=== PATIENT | male | born 1945 | race Caucasian/White ===

== ENCOUNTER 2020-03-07 14:14 | Observation (INO) | payer MEDICARE, OTHER ==
[~2020-03-07] VITALS: Ht 172.7 cm; Wt 108.0 kg
[~2020-03-07 14:14] MED LIST: ATENOLOL50 MG PO; BUMETANIDE2 MG PO; CARDIZEM CD300 MG PO; CITALOPRAM HBR20 MG PO; ECEE PLUS TABL1 EACH PO; EFFIENT10 MG PO; GLIPIZIDE10 MG PO; JANUMET 50-1,01 EACH PO; LEVAQUIN500 MG PO; LISINOPRIL-HCT1 EACH PO; LOVASTATIN20 MG PO; METOCLOPRAMIDE10 MG PO; MULTI-DAY VITA1 EACH PO; OMEGA 3 FISH O1 EACH PO; OMEPRAZOLE20 M1 PO; OXYBUTYNIN CHLOR5 MG PO; VANCOMYCIN HCL1 GM IV; VASOFLEX FORTE1 EACH PO
[2020-03-07] MEDS ORDERED: SODIUM CHLORIDE 0.9% 1000ML 1,000 ML IV STA (14:43)
[2020-03-07] MEDS ORDERED: ASPIRIN 81 MG CHEW TAB PO ONE (14:45)
--- NOTE | 2020-03-07 14:49 | Emergency Department Note ---
History of Present Illnes History of Present Illness Chief Complaint: Abdominal Complaints History of Present Illness This is a 74 year old male .c/o abd pain / chest pain on set this am here for diffuse abdominal and epigastric pain that started around 1115 this morning and has now subsided. client states that the pain made him want to vomit. Historian: Patient Arrival Mode: Car Onset (how long ago): day(s) (today) Radiation: abdomen Severity: moderate Onset quality: sudden Duration (how long): day(s) (onset today ) Timing of current episode: constant Progression: unchanged Context: recent illness, recent surgery, recent immobilization, recent travel, trauma/injury, new medications, hx of DVT/PE, non-compliance w/ medications, other Relieving factors: none Exacerbating factors: none Treatments prior to arrival: none (CARSON TOLEDO NP) Past Medical/Family History Physician Review I have reviewed the patient's past medical and family history. Any updates have been documented here. (CARSON TOLEDO NP) Past Medical History Recent Fever: No Clinical Suspicion of Infectio: No New/Unexplained Change in Ment: No Past Medical History: Hypertension, Diabetes, GERD Other Medical History: parkinsons Past Surgical History: Cholecysctectomy Other Surgery: FOOT SURGERY (CARSON TOLEDO NP) Social History Smoking Cessation: Never Smoker Alcohol Use: None Any Illegal Drug Use: No TB Exposure/Symptoms: No (CARSON TOLEDO NP) Family History Family history of heart diseas: No (CARSON TOLEDO NP) Other Last Tetanus: UNK Any Pre-Existing Lines (PICC,: No (CARSON TOLEDO NP) Review of Systems Review of Systems Constitutional: no symptoms EENTM: no symptoms Cardiovascular: no symptoms, chest pain Respiratory: no symptoms Gastrointestinal: abdominal pain, nausea Genitourinary: no symptoms Musculoskeletal: no symptoms Neurological: no symptoms Psychological: no symptoms Endocrine: no symptoms Hematological/Lymphatic: no symptoms Review of other systems All other systems reviewed and negative. (CARSON TOLEDO NP) Physical Exam Related Data Allergies: Coded Allergies: No Known Allergies (Unverified , 11/23/12) Triage Vital Signs Vital Signs Date Time Temp Pulse Resp B/P (MAP) Pulse Ox O2 Delivery O2 Flow Rate FiO2 03/07/20 14:31 97.8 66 16 122/70 97 Vital signs reviewed: Yes (SHORT,CARSON D NICU RN) Physical Exam CONSTITUTIONAL Constitutional: well-developed, well-nourished HENT HENT: normocephalic, atraumatic, oropharynx clear/moist, nose normal HENT L/R: left ext ear normal, right ext ear normal EYES Eyes: PERRL, conjunctivae normal NECK Neck: ROM normal PULMONARY Pulmonary: effort normal, breath sounds normal CARDIOVASCULAR Cardiovascular: regular rhythm, heart sounds normal, capillary refill normal, normal rate GASTROINTESTINAL Abdominal: soft, nontender, bowel sounds normal GENITOURINARY Genitourinary: exam deferred SKIN Skin: warm, dry MUSCULOSKELETAL Musculoskeletal: ROM normal NEUROLOGICAL Neurological: alert, oriented x 3, no gross motor or sensory deficits PSYCHOLOGICAL Psychological: mood/affect normal, judgement normal (CARSON TOLEDO NP) Results Laboratory Laboratory Laboratory Tests Test 03/07/20 14:40 White Blood Count 8.17 x10e3/uL (4.8-10.8) Red Blood Count 3.99 x10e6/uL (4.3-5.7) Hemoglobin 12.1 g/dL (14.0-18.0) Hematocrit 37.6 % (38.2-49.6) Mean Corpuscular Volume 94.2 fL (81-99) Mean Corpuscular Hemoglobin 30.3 pg (28-32) Mean Corpuscular Hemoglobin Concent 32.2 g/dL (31-35) Red Cell Distribution Width 13.2 % (11.7-14.4) Platelet Count 180 x10e3/uL (140-360) Neutrophils (%) (Auto) 76.0 % (38.7-80.0) Lymphocytes (%) (Auto) 14.3 % (18.0-39.1) Monocytes (%) (Auto) 6.4 % (4.4-11.3) Eosinophils (%) (Auto) 2.0 % (0.0-6.0) Basophils (%) (Auto) 0.6 % (0.0-1.0) Neutrophils # (Auto) 6.2 (2.1-6.9) Lymphocytes # (Auto) 1.2 (1.0-3.2) Monocytes # (Auto) 0.5 (0.2-0.8) Eosinophils # (Auto) 0.2 (0.0-0.4) Basophils # (Auto) 0.1 (0.0-0.1) Absolute Immature Granulocyte (auto 0.06 x10e3/uL (0-0.1) Prothrombin Time 11.9 seconds (11.9-14.5) Prothromb Time International Ratio 0.83 Activated Partial Thromboplast Time 26.8 seconds (23.8-35.5) Sodium Level 138 mmol/L (136-145) Potassium Level 5.1 mmol/L (3.5-5.1) Chloride Level 105 mmol/L (98-107) Carbon Dioxide Level 21 mmol/L (22-29) Anion Gap 17.1 mmol/L (8-16) Blood Urea Nitrogen 31 mg/dL (7-26) Creatinine 1.71 mg/dL (0.72-1.25) Estimat Glomerular Filtration Rate 39 ML/MIN (60-) BUN/Creatinine Ratio 18 (6-25) Glucose Level 340 mg/dL (74-118) Calcium Level 8.7 mg/dL (8.4-10.2) Total Bilirubin 0.3 mg/dL (0.2-1.2) Aspartate Amino Transf (AST/SGOT) 35 IU/L (5-34) Alanine Aminotransferase (ALT/SGPT) 14 IU/L (0-55) Alkaline Phosphatase 108 IU/L (40-150) Creatine Kinase 78 IU/L (30-200) Creatine Kinase MB 3.30 ng/mL (0-5.0) Troponin I < 0.001 ng/mL (0-0.300) Total Protein 6.5 g/dL (6.5-8.1) Albumin 3.6 g/dL (3.5-5.0) Globulin 2.9 g/dL (2.3-3.5) Albumin/Globulin Ratio 1.2 (0.8-2.0) Amylase Level 37 U/L (25-125) Lipase 44 U/L (8-78) Lab results reviewed: Yes (CARSON TOLEDO NP) Imaging Impressions Procedure: [id number] DX/CHEST SINGLE (PORTABLE) Exam Date: 03/07/20 Exam Time: 1520 REPORT STATUS: Signed TECHNIQUE: Frontal view of the chest. INDICATION: 74-year-old man with chest pain. COMPARISON: Chest radiograph 11/23/2012. FINDINGS: LINES/TUBES: None. LUNGS: The lungs are well inflated. No consolidation or pulmonary edema. PLEURA: No pneumothorax or significant pleural effusion. HEART AND MEDIASTINUM: The cardiomediastinal silhouette is within normal limits. SOFT TISSUES AND BONES: Bones are unremarkable. Unchanged clips in the left axillary region. IMPRESSION: No acute cardiopulmonary abnormalities. Signed by: Domingo Valle MD on 03/07/2020 3:58 PM Dictated By: DOMINGO VALLE MD 57 Transcribed By: NIRAJ on 03/07/201557 Procedure: [id number] CT/CT ABDOMEN/PELVIS WO Exam Date: Exam Time: REPORT STATUS: Signed EXAMINATION: CT of the abdomen and pelvis without contrast. TECHNIQUE: Spiral CT images of the abdomen and pelvis were performed from the lung bases to the lesser trochanters. No intravenous contrast was given due to decreased GFR. Coronal and sagittal reformatted images were obtained. COMPARISON: None. CLINICAL HISTORY:Epigastric pain, diffuse abdominal pain since today DISCUSSION: ABSENCE OF INTRAVENOUS CONTRAST DECREASES SENSITIVITY FOR DETECTION OF FOCAL LESIONS AND VASCULAR PATHOLOGY. ABDOMEN/PELVIS: LOWER THORAX: Linear subsegmental atelectasis versus scarring in the lingula. Atherosclerotic calcification of the right coronary artery. HEPATOBILIARY: Ill-defined 4-5 mm hypodense lesion in hepatic segment VIII near the dome (series 2, image 14), which is too small to characterize. No other focal lesions. No intra or extrahepatic biliary ductal dilation. Ill-defined hyperdensities which appear to be located in the mid and distal CBD (as visualized on coronal images 68-70). GALLBLADDER: Cholecystectomy clips. SPLEEN: No splenomegaly. PANCREAS: No focal masses or ductal dilatation. Moderate pancreatic atrophy. No peripancreatic inflammatory changes, free fluid or fluid collections. ADRENALS: No adrenal nodules. KIDNEYS/URETERS: No hydronephrosis, renal or ureteral calculi. 1.7 cm mostly exophytic fluid density lesion consistent with a simple cyst. No other contour abnormalities. Mild bilateral nonspecific perinephric stranding. PELVIC ORGANS/BLADDER: Bladder and prostate are unremarkable. Pelvic phleboliths. PERITONEUM/RETROPERITONEUM: No free air or fluid. LYMPH NODES: No intra-abdominal,retroperitoneal, pelvic or inguinal lymphadenopathy. VESSELS: Moderate atherosclerotic calcification of the abdominal aorta and proximal iliac vessels. Extensive calcification of the splenic artery. GI TRACT: No bowel dilation or evidence of obstruction. No wall thickening. 8. Colonic inflammatory changes. A few scattered diverticula in the sigmoid colon, without diverticulitis. BONES AND SOFT TISSUES: No aggressive lytic or suspicious sclerotic lesions. Multilevel degenerated disc in the lower thoracic and lumbosacral spine, worse at L4-L5 and L5-S1. Small fat-containing umbilical hernia. IMPRESSION: 1. Ill-defined hyperdensities which appear to be located in the mid and distal CBD may represent choledocholithiasis. No intra or extrahepatic biliary ductal dilation is noted. This may be confirmed with MRI abdomen/MRCP. 2.No CT evidence of pancreatitis. 3. No bowel dilation or evidence of obstruction. Sigmoid diverticulosis, without diverticulitis. Signed by: Dr. Christiane Leong M.D. on 03/07/2020 4:44 PM Dictated By: CHRISTIANE LEONG MD 43 Transcribed By: NIRAJ on 03/07/201643 (CARSON TOLEDO NP) Procedures 12 Lead ECG Interpretation Tubing Mill Operator: Interpreted by ED physician (renny) Date: March 07, 2020 Time: 14:56 Prior PODIATRIC SURGEON tracings: reviewed Rhythm: sinus rhythm Rate: normal BPM: 66 QRS axis: normal Conduction: 1st degree Clinical Impression: abnormal ECG (CARSON TOLEDO NP) Assessment & Plan Reassessment Reassessment time: 14:48 Reassessment 74y m presented to ed c/o generalized abd pain/ cp on set 1115 today - Dr Brown in eval pt status - lab ekg cxr ct abd ordered - medicated w/ ns zofran (CARSON TOLEDO NP) Assessment & Plan Final Impression: (1) Chest pain Assessment & Plan Dr Brown in re eval pt status - discussed lab ekg cxr results plan of care and need for admit Dr Brown spoke w/ Dr Oviedo and Dr Aden will admit (CARSON TOLEDO NP) Depart Disposition: ADMITTED Last Vital Signs Date Time Temp Pulse Resp B/P (MAP) Pulse Ox O2 Delivery O2 Flow Rate FiO2 03/07/20 14:31 97.8 66 16 122/70 97 (CARSON TOLEDO NP) Home Meds Reported Medications Levofloxacin (LEVAQUIN) 500 Mg Tablet, 500 MG PO DAILY, #7 12/24/12 Vancomycin Hcl (VANCOMYCIN HCL) 1 Gm Vial, 1000 MG IV BID 12/19/12 [place]-3 Fatty Acids/Fish Oil (OMEGA 3 FISH OIL SOFTGEL) 1 Each Capsule.dr, 1200 UNITS PO DAILY 12/19/12 Multivitamin (MULTI-DAY VITAMINS) 1 Each Tablet, 500 INTLU PO DAILY 12/19/12 Vit C/Butchers Broom/Hesperidn (VASOFLEX FORTE CAPSULE) 1 Each Capsule, 1000 INTLU PO DAILY 12/19/12 Vit E/Vit C/Magnesium/Zinc (ECEE PLUS TABLET) 1 Each Tablet, 1000 INTLU PO DAILY 12/19/12 Oxybutynin Chloride (OXYBUTYNIN CHLORIDE) 5 Mg Tablet, 10 MG PO HS 12/19/12 Bumetanide (BUMETANIDE) 2 Mg Tablet, 2 MG PO BID 11/23/12 Sitagliptin Phos/Metformin Hcl (JANUMET 50-1,000 MG TABLET) 1 Each Tablet, 50 - 1000 MG PO BID 11/23/12 Atenolol (ATENOLOL) 50 Mg Tablet, 50 MG PO HS 11/23/12 Lovastatin (LOVASTATIN) 20 Mg Tablet, 20 MG PO HS 11/23/12 Metoclopramide Hcl (METOCLOPRAMIDE HCL) 10 Mg Tablet, 10 MG PO HS 11/23/12 Omeprazole (OMEPRAZOLE) 20 Mg Tablet.dr, 20 MG PO DAILY 11/23/12 Prasugrel Hcl (EFFIENT) 10 Mg Tablet, 10 MG PO DAILY 11/23/12 Citalopram Hydrobromide (CITALOPRAM HBR) 20 Mg Tablet, 20 MG PO BID 11/23/12 Lisinopril/Hydrochlorothiazide (LISINOPRIL-HCTZ 20-12.5 MG TAB) 1 Each Tablet, 12.5 - 20 MG PO DAILY 11/23/12 Glipizide (GLIPIZIDE) 10 Mg Tablet, 10 MG PO DAILY 11/23/12 Diltiazem Hcl (CARDIZEM CD) 300 Mg Cap.er.24h, 300 MG PO BID 11/23/12 Physician Attestation Provider Attestation The patient's history, exam findings, diagnostics, and a summary of any interventions or procedures was reviewed in detail with our AP. I personally interviewed and examined the patient, and I have reviewed and agree with the HPI andexam. My personal exam shows CV- RRR, L- CTA bilat, Abd- S, NTND, NABS. I confirm the diagnosis as documented by the AP. I have reviewed and agree with the care plan articulated in the disposition section. (CHRISTOPHER BROWN MD) CARSON TOLEDO NP March 07, 2020 14:49 CHRISTOPHER BROWN MD March 07, 2020 16:57
[2020-03-07 15:30] LABS: BASOPHILS # (AUTO) 0.1 (0.0-0.1); BASOPHILS % 0.6 % (0.0-1.0); EOSINOPHILS # (AUTO) 0.2 (0.0-0.4); HEMATOCRIT 37.6 % (38.2-49.6); HEMOGLOBIN 12.1 g/dL (14.0-18.0); LYMPHOCYTES # (AUTO) 1.2 (1.0-3.2); LYMPHOCYTES % 14.3 % (18.0-39.1); MEAN CORPUSCULAR HEMOGLOBIN 30.3 pg (28-32); MEAN CORPUSCULAR HGB CONC 32.2 g/dL (31-35); MEAN CORPUSCULAR VOLUME 94.2 fL (81-99); MONOCYTES # (AUTO) 0.5 (0.2-0.8); MONOCYTES % 6.4 % (4.4-11.3); NEUTROPHILS # (AUTO) 6.2 (2.1-6.9); PLATELET COUNT 180 x10e3/uL (140-360); RED BLOOD COUNT 3.99 x10e6/uL (4.3-5.7); RED CELL DISTRIBUTION WIDTH 13.2 % (11.7-14.4)
[2020-03-07 15:37] LABS: INR 0.83; PROTHROMBIN TIME 11.9 seconds (11.9-14.5)
[2020-03-07 15:38] LABS: PARTIAL THROMBOPLASTIN TIME 26.8 seconds (23.8-35.5)
[2020-03-07 15:45] LABS: ALANINE AMINOTRANSFERASE 14 IU/L (0-55); ALBUMIN 3.6 g/dL (3.5-5.0); ALBUMIN/GLOBULIN RATIO 1.2 (0.8-2.0); ALKALINE PHOSPHATASE 108 IU/L (40-150); AMYLASE 37 U/L (25-125); ANION GAP 17.1 mmol/L (8-16); BLOOD UREA NITROGEN 31 mg/dL (7-26); BUN/CREATININE RATIO 18 (6-25); CALCIUM 8.7 mg/dL (8.4-10.2); CARBON DIOXIDE 21 mmol/L (22-29); CHLORIDE 105 mmol/L (98-107); CREATINE KINASE 78 IU/L (30-200); CREATININE, SERUM 1.71 mg/dL (0.72-1.25); EST GLOMERULAR FILTRATION RATE 39 ML/MIN (60-); GLUCOSE 340 mg/dL (74-118); LIPASE 44 U/L (8-78); POTASSIUM 5.1 mmol/L (3.5-5.1); SODIUM 138 mmol/L (136-145)
--- NOTE | 2020-03-07 16:02 | Diagnostic Imaging Report ---
TECHNIQUE: Frontal view of the chest. INDICATION: 74-year-old man with chest pain. COMPARISON: Chest radiograph 11/23/2012. FINDINGS: LINES/TUBES: None. LUNGS: The lungs are well inflated. No consolidation or pulmonary edema. PLEURA: No pneumothorax or significant pleural effusion. HEART AND MEDIASTINUM: The cardiomediastinal silhouette is within normal limits. SOFT TISSUES AND BONES: Bones are unremarkable. Unchanged clips in the left axillary region. IMPRESSION: No acute cardiopulmonary abnormalities. Signed by: Chriss Luke MD on 03/07/2020 3:58 PM
--- NOTE | 2020-03-07 16:47 | Diagnostic Imaging Report ---
EXAMINATION: CT of the abdomen and pelvis without contrast. TECHNIQUE: Spiral CT images of the abdomen and pelvis were performed from the lung bases to the lesser trochanters. No intravenous contrast was given due to decreased GFR. Coronal and sagittal reformatted images were obtained. COMPARISON: None. CLINICAL HISTORY:Epigastric pain, diffuse abdominal pain since today DISCUSSION: ABSENCE OF INTRAVENOUS CONTRAST DECREASES SENSITIVITY FOR DETECTION OF FOCAL LESIONS AND VASCULAR PATHOLOGY. ABDOMEN/PELVIS: LOWER THORAX: Linear subsegmental atelectasis versus scarring in the lingula. Atherosclerotic calcification of the right coronary artery. HEPATOBILIARY: Ill-defined 4-5 mm hypodense lesion in hepatic segment VIII near the dome (series 2, image 14), which is too small to characterize. No other focal lesions. No intra or extrahepatic biliary ductal dilation. Ill-defined hyperdensities which appear to be located in the mid and distal CBD (as visualized on coronal images 68-70). GALLBLADDER: Cholecystectomy clips. SPLEEN: No splenomegaly. PANCREAS: No focal masses or ductal dilatation. Moderate pancreatic atrophy. No peripancreatic inflammatory changes, free fluid or fluid collections. ADRENALS: No adrenal nodules. KIDNEYS/URETERS: No hydronephrosis, renal or ureteral calculi. 1.7 cm mostly exophytic fluid density lesion consistent with a simple cyst. No other contour abnormalities. Mild bilateral nonspecific perinephric stranding. PELVIC ORGANS/BLADDER: Bladder and prostate are unremarkable. Pelvic phleboliths. PERITONEUM/RETROPERITONEUM: No free air or fluid. LYMPH NODES: No intra-abdominal,retroperitoneal, pelvic or inguinal lymphadenopathy. VESSELS: Moderate atherosclerotic calcification of the abdominal aorta and proximal iliac vessels. Extensive calcification of the splenic artery. GI TRACT: No bowel dilation or evidence of obstruction. No wall thickening. 8. Colonic inflammatory changes. A few scattered diverticula in the sigmoid colon, without diverticulitis. BONES AND SOFT TISSUES: No aggressive lytic or suspicious sclerotic lesions. Multilevel degenerated disc in the lower thoracic and lumbosacral spine, worse at L4-L5 and L5-S1. Small fat-containing umbilical hernia. IMPRESSION: 1. Ill-defined hyperdensities which appear to be located in the mid and distal CBD may represent choledocholithiasis. No intra or extrahepatic biliary ductal dilation is noted. This may be confirmed with MRI abdomen/MRCP. 2.No CT evidence of pancreatitis. 3. No bowel dilation or evidence of obstruction. Sigmoid diverticulosis, without diverticulitis. Signed by: Dr. Rashard Leong M.D. on 03/07/2020 4:44 PM
[2020-03-07] MEDS ORDERED: ONDANSETRON HCL INJ 2MG/ML 2ML 2 MG/ML VIAL IV PRN (17:00)
[2020-03-07] MEDS ORDERED: NITROGLYCERIN 0.4 MG SUBL SL PRN (17:00)
[2020-03-07] MEDS ORDERED: MORPHINE SULFATE 2 MG/ML SYR 1ML IV PRN (17:00)
[2020-03-07] MEDS: FAMOTIDINE 20 MG/2 ML VIAL IV SCH (17:25)
[2020-03-07 17:47] LABS: CLARITY,URINE SL CLOUDY (CLEAR); COLOR,URINE YELLOW (YELLOW); LEUKOCYTE ESTERASE ,URINE NEGATIVE (NEGATIVE)
[2020-03-07 17:48] LABS: BILIRUBIN,URINE NEGATIVE (NEGATIVE); KETONES,URINE NEGATIVE (NEGATIVE); NITRITE,URINE NEGATIVE (NEGATIVE); PROTEIN,URINE DIPSTICK 1+ (NEGATIVE); URINE UROBILINOGEN 0.2 mg/dL (0.2 - 1)
[2020-03-07 18:02] LABS: BACTERIA,URINE RARE /HPF; RBC,URINE 0-5 /HPF (0-5)
[2020-03-07] MEDS ORDERED: DEXTROSE 50% SYRINGE 50 ML IV PRN (18:15)
--- NOTE | 2020-03-07 19:09 | NUR ---
PATIENT KEEPS TAKING OFF CARDIAC LEADS DURING REPORT, PATIENT REORIENTATED TO REASONING BEHIND CARDIAC LEADS.
[2020-03-07 20:33] VITALS: BP 170/90
[2020-03-07] MEDS: INSULIN LISPRO 100 UNIT/1 ML 3ML VIAL SQ SCH (21:00)
[2020-03-08] VITALS (10 sets, daily range): BP systolic 118–170; BP diastolic 67–90
[2020-03-08 02:06] LABS: CREATINE KINASE 76 IU/L (30-200)
--- NOTE | 2020-03-08 02:26 | NUR ---
PT IS TRANSFERRED FROM ER .PT IS AOX3 ..RESPIRATIONS ARE EVEN AND UNLABORED .SKIN WARM AND DRY TO TOUCH DENIES PAIN .ORIENTED PT TO THE ENVIRONMENT.CALL LIGHT WITH IN REACH .CONTINUE TO MONITOR
[2020-03-08] MEDS: FAMOTIDINE 20 MG/2 ML VIAL IV SCH ×2 (05:00→17:35)
--- NOTE | 2020-03-08 06:22 | NUR ---
PT RESTED DURING THE NIGHT .DENIES PAIN . .CALL LIGHT WITH IN REACH .CONTINUE TO MONITOR
--- NOTE | 2020-03-08 06:32 | NUR ---
PT RESTED DURING THE NIGHT ,DENIES CHEST PAIN .DR VELASCO HAS SEEN THE PT ,NEW ORDER FOR MRCP.CALL LIGHT WITH IN REACH CONTINUE TO MONITOR
[2020-03-08 06:33] LABS: BASOPHILS # (AUTO) 0.1 (0.0-0.1); BASOPHILS % 0.6 % (0.0-1.0); EOSINOPHILS # (AUTO) 0.2 (0.0-0.4); EOSINOPHILS % 2.4 % (0.0-6.0); HEMATOCRIT 41.5 % (38.2-49.6); HEMOGLOBIN 13.3 g/dL (14.0-18.0); LYMPHOCYTES # (AUTO) 1.7 (1.0-3.2); LYMPHOCYTES % 21.8 % (18.0-39.1); MEAN CORPUSCULAR HEMOGLOBIN 30.6 pg (28-32); MEAN CORPUSCULAR VOLUME 95.6 fL (81-99); MONOCYTES # (AUTO) 0.6 (0.2-0.8); MONOCYTES % 7.4 % (4.4-11.3); NEUTROPHILS # (AUTO) 5.3 (2.1-6.9); NEUTROPHILS % 67.2 % (38.7-80.0); PLATELET COUNT 184 x10e3/uL (140-360); RED BLOOD COUNT 4.34 x10e6/uL (4.3-5.7); RED CELL DISTRIBUTION WIDTH 12.8 % (11.7-14.4)
--- NOTE | 2020-03-08 06:52 | NUR ---
,BEDSIDE REPORT GIVEN TO THE ONCOMING NURSE
[2020-03-08 07:16] LABS: ANION GAP 15.6 mmol/L (8-16); CALCIUM 9.4 mg/dL (8.4-10.2); CHOL/HDL RATIO 3.4 (3.9-4.7); CREATININE, SERUM 1.45 mg/dL (0.72-1.25); POTASSIUM 4.6 mmol/L (3.5-5.1)
[2020-03-08] MEDS: INSULIN LISPRO 100 UNIT/1 ML 3ML VIAL SQ SCH ×4 (07:30→21:00)
[2020-03-08 07:38] LABS: CREATINE KINASE MB 3.3 ng/mL (0-5.0)
[2020-03-08] MEDS: ASPIRIN 81 MG ENTERIC COATED PO SCH (08:53)
[2020-03-08] MEDS: LISINOPRIL 20 MG TAB PO SCH (08:53)
[2020-03-08] MEDS: PANTOPRAZOLE SOD 40 MG TABEC PO SCH (08:56)
[2020-03-08] MEDS: PRASUGREL 10 MG TAB PO SCH (08:57)
[2020-03-08] MEDS: GLIPIZIDE 5 MG TAB ER PO SCH (08:59)
[2020-03-08] MEDS: DILTIAZEM HCL 30 MG TAB PO SCH ×2 (08:59→17:36)
[2020-03-08] MEDS: CITALOPRAM HYDROBROMIDE 20 MG TAB PO SCH ×2 (09:00→17:35)
--- OUTSIDE RECORDS SUMMARY | 2020-03-08 10:16 | XMS REPORT ---
Author Author [facility] t Organization [facility] Address [address] [place] [address] Phone Unavailable Care Team Providers Care Road Traffic Controller Name Role Phone Brooke BROWN Attphys Unavailable Payers Payer Name Policy Type Policy Number Effective Date Expiration Date S ource Problems This patient has no known problems. Allergies, Adverse Reactions, Alerts Allergy Name Allergy Type Status Severity Reaction(s) Onset Date Inacti ve Date Treating Clinician Comments Source No Known Allergies DA Active U 2020-01-31 00:00:00 [facility] Medications This patient has no known medications. Procedures This patient has no known procedures. Results Test Description Test Time Test Comments Results Result Comments Source CT ABDOMEN/PELVIS WO 2020-03-07 16:34:00 [facility] [address] [address] Patient Name: LISBETH BLUE MR #: [id number] : 1945 Age/Sex: 74/M Req #: [id number] Adm Physician: Ordered by: CARSON TOLEDO CRM MARKETING SPECIALIST Report #: [id number] Location: ER Room/Bed: Procedure: CT/CT ABDOMEN/PELVIS WO Exam Date: Exam Time: REPORT STATUS: Signed EXAMINATION: CT of the abdomen and pelvis without contrast. TECHNIQUE: Spiral CT images of the abdomen and pelvis were performed from the lung bases to the lesser trochanters. No intravenous contrast was given due to decreased GFR. Coronal and sagittal reformatted im ages were obtained. COMPARISON: None. CLINICAL HISTORY:Epigastric pain, diffuse abdominal pain since today DISCUSSION: ABSENCE OF INTRAVENOUS CONTRAST DECREASES SENSITIVITY FOR DETECTION OF FOCAL LESIONS AND VASCULAR PATHOLOGY. ABDOMEN/PELVIS: LOWER THORAX: Linear subsegmental atelectasis versus scarring in the lingula. Atherosclerotic calcification of the right coronary artery. HEPATOBILIARY: Ill-defined 4-5 mm hypodense lesion in hepatic segment VIII near the dome (series 2, image 14), which is too small to characterize. No other focal lesions. No intra or extrahepatic biliary ductal dilation. Ill-defined hyperdensities which appear to be located in the mid and distal CBD (as visualized on coronal images 68-70). GALLBLADDER: Cholecystectomy clips. SPLEEN: No splenomegaly. PANCREAS: No focal masses or ductal dilatation. Moderate pancreatic atrophy. No peripancreatic inflammatory changes, free fluid or fluid collections. ADRENALS: No adrenal nodules. KIDNEYS/URETERS: No hydronephrosis, renal or ureteral calculi. 1.7 cm mostly exophytic fluid density lesion consistent with a simple cyst. No other contour abnormalities. Mild bilateral nonspecific perinephric stranding. PELVIC ORGANS/BLADDER: Bladder and prostate are unremarkable. Pelvic phleboliths. PERITONEUM/RETROPERITONEUM: No free air or fluid. LYMPH NODES: No intra-abdominal,retroperitoneal, pelvic or inguinal lymphadenopathy. VESSELS: Moderate atherosclerotic calcification of the abdominal aorta and proximal iliac vessels. Extensive calcification of the splenic artery. GI TRACT: No bowel dilation or evidence of obstruction. No wall thickening. 8. Colonic inflammatory changes. A few scattered diverticula in the sigmoid colon, without diverticulitis. BONES AND SOFT TISSUES: No aggressive lytic or suspicious sclerotic lesions. Multilevel degenerated disc in the lower thoracic and lumbosacral spine, worse at L4-L5 and L5-S1. Small fat-containing umbilical hernia. IMPRESSION: 1. Ill- defined hyperdensities which appear to be located in the mid and distal CBD may represent choledocholithiasis. No intra or extrahepatic biliary ductal dilation is noted. This may be confirmed with MRI abdomen/MRCP. 2.No CT evidence of pancreatitis. 3. No bowel dilation or evidence of obstruction. Sigmoid diverticulosis, without diverticulitis. Signed by: Dr. Rashard Leong M.D. on 03/07/2020 4:44 PM Dictated By: RASHARD LEONG MD 43 Transcribed By: NIRAJ on 03/07/201643 COPY TO: CARSON TOLEDO CRM MARKETING SPECIALIST CHEST SINGLE (PORTABLE) 2020-03-07 15:56:00 [address] [address] Patient Name: LISBETH BLUE MR #: [id number] : 1945 Age/Sex: 74/M Req #: [id number] Adm Physician: Ordered by: CARSON TOLEDO CRM MARKETING SPECIALIST Report #: [id number] Location: ER Room/Bed: Procedure: [id number] DX/CHEST SINGLE (PORTABLE) Exam Date: 03/07/20 Exam Time: 1520 REPORT STATUS: Signed TECHNIQUE: Frontal view of the chest. INDICATION: 74-year-old man with chest pain. COMPARISON: Chest radiograph 11/23/2012. FINDINGS: LINES/TUBES: None. LUNGS: The lungs are well inflated. No consolidation or pulmonary edema. PLEURA: No pneumothorax or significant pleural effusion. HEART AND MEDIASTINUM: The cardiomediastinal silhouette is within normal limits. SOFT TISSUES AND BONES: Bones are unremarkable. Unchanged clips in the left axillary region. IMPRESSION: No acute cardiopulmonary abnormalities. Signed by: Domingo Valle MD on 03/07/2020 3:58 PM Dictated By: DOMINGO VALLE MD 57 Transcribed By: NIRAJ on 03/07/201557 COPY TO: CARSON TOLEDO NP GLUBED 2020-02-02 11:25:00 Test Item GLUBED (test code = GLUBED) 280 mg/dL 74-106 H Performed by certified tie in machine operator at [facility] [id number] 06:14:00* Test Item Value Reference Range Interpretation Comments GLUBED (test code = GLUBED) 172 mg/dL 74-106 H Performed by certified tie in machine operator at [facility] [id number] 20:11:00* Test Item Value Reference Range Interpretation Comments GLUBED (test code = GLUBED) 217 mg/dL 74-106 H Performed by certified tie in machine operator at [facility] - XR CHEST 1 [id number] 19:06:00 FAX: Ariela Morse MD [phone] [place]: St: ADM Name: LISBETH GARCIA [facility] : [birth year] Age/S: 74/M [address] [facility] Unit #: [id number] Loc: V.[address] [place] [address] Phys: Ariela Morse MD Acct: [id number] Dis Date: Status: ADM IN PHONE #: [phone] Exam Date: 02/01/2020 1850 FAX #: [phone] Reason: sob EXAMS: CPT CODE: [id number] XR CHEST 1 V 92682 HISTORY: Shortness of breath. COMPARISON: None available. Location: TH. No acute infiltrates, effusion or congestion is noted. Suboptimal inspira tion. Moderate cardiomegaly. IMPRESSION: No acute infiltrates, effusion or congestion. at 1906 Reported and si gned by: Augusto Cervantes M.D. CC: Ariela Morse MD Technologist: STEPHANIE MADDEN Trnscrd Date/Time/By: 02/01/2020 (1905) : By: [email or web address] Orig Print D/T: S: 02/01/2020 (1908) PAGE 1 Signed Report [id number] 16:40:00* Test Item Value Reference Range Interpretation Comments GLUBED (test code = GLUBED) 208 mg/dL 74-106 H Performed by certified tie in machine operator at [facility] - MRI BRAIN W/O [id number] 12:01:00 FAX: Ariela Morse MD [phone] [place]: St: ADM Name: LISBETH GARCIA [facility] [employer] : [birth year] Age/S: 74/M [address] [facility] Unit #: [id number] Loc: V[address] [place] [address] Phys: Ariela Morse MD Acct: [id number] Dis Date: Status: ADM IN PHONE #: [phone] Exam Date: 02/01/2020 115 FAX #: [phone] Reason: r/o cva EXAMS: CPT CODE: [id number] MRI BRAIN W/O CONTRAST 01062 HISTORY: Stroke TECH NIQUE: Sagittal T1, axial FLAIR, axial T2, axial gradient T2, axial T1, co bhavana T2, and DWI/ADC sequences of the brain were acquired. Examination ac quired within 24 hours of arrival. COMPARISON: None FINDINGS: No evidence of acute ischemic insult. Mild chronic rosalba rovascular ischemic changes. Chronic left cerebellar lacunar infarct. No intracranial hemorrhage. No intracranial mass or mass effect. Moderate parenchymal atrophy. No hydrocephalus. Pituitary gland and corpus callosum are normal in appearance. No extra-axial fluid collections. Normal vasc ular flow-voids are identified. Bilateral lens implants. Paranasal sinuses are clear. Calvarial and skull base marrow signal is preserved. IMPRESSION: Limited by motion artifact. No acute infarct or other acute intracranial process. LOCATION: LP at 1201 Reported and signed by: Greta Prasad D.O. CC: Ariela Morse MD Technologist: Kenna Adam)(MR) Trnscrd Date/Time/By: 02/01/2020 (1201) : By: [email or web address] Orig Print D/T: S: 02/01/2020 (0086) PAGE 1 Signed Report [id number] 11:04:00* Test Item Value Reference Range Interpretation Comments GLUBED (test code = GLUBED) 190 mg/dL 74-106 H Performed by certified tie in machine operator at [facility] COMPREHENSIVE METABOLIC [id number] 06:49:00* Test Item Value Reference Range Interpretation Comments SODIUM (test code = NA) 140 mmol/L 136-145 N POTASSIUM (test code = K) 3.9 mmol/L 3.5-5.1 N CHLORIDE (test code = CL) 108.0 mmol/L 98-107 H CARBON DIOXIDE (test code = CO2) 24.0 mmol/L 21-32 N ANION GAP (test code = GAP) 11.9 10-20 N GLUCOSE (test code = GLU) 84 mg/dL 74-106 N BLOOD UREA NITROGEN (test code = BUN) 28 mg/dL 7-18 H GLOMERULAR FILTRATION RATE (test code = GFR) 46 mL/min >=60 Estimated GFR by using Modified MDRD formula.Chronic kidney disease is defined as either kidney damageor GFR <60 mL/min/1.73 m2 for >3 months. CREATININE (test code = CREAT) 1.50 mg/dL 0.7-1.3 H BUN/CREATININE RATIO (test code = BUN/CREA) 18.7 10-20 N TOTAL PROTEIN (test code = PROT) 6.8 gram/dL 6.4-8.2 N ALBUMIN (test code = ALB) 3.1 g/dL 3.4-5.0 L GLOBULIN (test code = GLOB) 3.7 gram/dL 2.7-4.2 N ALBUMIN/GLOBULIN RATIO (test code = A/G) 0.8 0.75-1.50 N CALCIUM (test code = CA) 8.7 mg/dL 8.5-10.1 N BILIRUBIN TOTAL (test code = BILT) 0.40 mg/dL 0.0-1.0 N SGOT/AST (test code = AST) 19 IUnit/L 15-37 N SGPT/ALT (test code = ALT) 25 IUnit/L 12-78 N ALKALINE PHOSPHATASE TOTAL (test code = ALKP) 102 IUnit/L 45-117 N Note change in reference range due to change in reagent. LIPID PROFILE (CORONARY RISK)2020-02-01 06:49:00* Test Item Value Reference Range Interpretation Comments TRIGLYCERIDES (test code = TRIG) 97 mg/dL 20-150 N CHOLESTEROL (test code = CHOL) 116 mg/dL 0-200 N CHOLESTEROL/HDL RATIO (test code = CHOLHDL) 2.0 RATIO 0-4.9 N RISK ASSOCIATED WITH CHOL/HDL RATIOS: Risk Male Female1/2 AVERAGE 3.43 3.27AVERAGE 4.97 4.442X AVERAGE 9.55 7.053X AVERAGE 23.39 11.04 REFERENCE VALUE IS RELATED TO RISK LEVELS ASRECOMMENDED BY THE [facility]. HEART, LUNG, AND BLOOD INST. HDL CHOLESTEROL (test code = HDL) 43 mg/dL 40-60 N LIPOPROTEIN LDL (test code = LDL) 59 mg/dL 100-129 L Reference Interval: mg/dL mmol/L Optimal <100 <2.6Near/above optimal 100-129 2.6- 3.3Borderline High 130-159 3.4-4.1High 160-189 4.1-4.9Very High >=190 >=4.9========= This LDL result is a direct measurement.========= THYROID STIMULATING [id number] 06:49:00* Test Item Value Reference Range Interpretation Comments THYROID STIMULATING HORMONE (test code = TSH) 0.362 uIU/mL 0.36-3.7 4 N TSH REFERENCE RANGES: EUTHYROID: 0.35 - 4.3 mIU/mL HYPO : > 5.5 mIU/mL HYPER : < 0.35 mIU/mL CBC W/AUTO [id number] 06:48:00* Test Item Value Reference Range Interpretation Comments WHITE BLOOD CELL (test code = WBC) 5.2 K/mm3 4.5-12.5 N RED BLOOD CELL (test code = RBC) 3.74 mill/mm3 4.0-5.8 L HEMOGLOBIN (test code = HGB) 11.6 gram/dL 13.0-17.5 L HEMATOCRIT (test code = HCT) 35.5 % 42.0-52.0 L MEAN CELL VOLUME (test code = MCV) 94.9 fL 80-98 N MEAN CELL HGB (test code = MCH) 31.0 picogram 27.0-33.0 N MEAN CELL HGB CONCETRATION (test code = MCHC) 32.7 gram/dL 33.0-36. 0 L RED CELL DISTRIBUTION WIDTH (test code = RDW) 12.8 % 11.6-16. 2 N RED CELL DISTRIBUTION WIDTH SD (test code = RDW-SD) 44.2 fL 37 .0-51.0 N PLATELET COUNT (test code = PLT) 129 K/mm3 150-450 L MEAN PLATELET VOLUME (test code = MPV) 10.1 fL 6.7-11.0 N NEUTROPHIL % (test code = NT%) 82.1 % 39.0-69.0 H IMMATURE GRANULOCYTE % (test code = IG%) 0.6 % 0.0-5.0 N LYMPHOCYTE % (test code = LY%) 9.3 % 25.0-55.0 L MONOCYTE % (test code = MO%) 7.0 % 0.0-10.0 N EOSINOPHIL % (test code = EO%) 0.8 % 0.0-5.0 N BASOPHIL % (test code = BA%) 0.2 % 0.0-1.0 N NUCLEATED RBC % (test code = NRBC%) 0.0 % 0-0 N NEUTROPHIL # (test code = NT#) 4.25 K/mm3 1.8-7.7 N IMMATURE GRANULOCYTE # (test code = IG#) 0.03 x10 3/uL 0-0.03 N LYMPHOCYTE # (test code = LY#) 0.48 K/mm3 1.0-5.0 L MONOCYTE # (test code = MO#) 0.36 K/mm3 0-0.8 N EOSINOPHIL # (test code = EO#) 0.04 K/mm3 0.0-0.5 N BASOPHIL # (test code = BA#) 0.01 K/mm3 0.0-0.2 N NUCLEATED RBC # (test code = NRBC#) 0.00 K/mm3 0.0-0.1 N MANUAL DIFF REQUIRED (test code = MDIFF) NO [id number] 06:48:00* Test Item Value Reference Range Interpretation Comments GLYCOSYLATED HEMOGLOBIN (HA1C) (test code = GLYHGB) 6.8 % HbA1 SUGGESTED DIAGNOSIS: HbA1C (%) Diabetic >6.4Prediabetes 5.7 - 6.4Normal <5.7 ESTIMATED AVERAGE GLUCOSE (test code = EAG) 148 MG/DL COMPREHENSIVE METABOLIC [id number] 06:35:00* Test Item Value Reference Range Interpretation Comments SODIUM (test code = NA) 140 mmol/L 136-145 N POTASSIUM (test code = K) 3.9 mmol/L 3.5-5.1 N CHLORIDE (test code = CL) 108.0 mmol/L 98-107 H CARBON DIOXIDE (test code = CO2) mmol/L 21-32 ANION GAP (test code = GAP) 10-20 GLUCOSE (test code = GLU) mg/dL 74-106 BLOOD UREA NITROGEN (test code = BUN) mg/dL 7-18 GLOMERULAR FILTRATION RATE (test code = GFR) mL/min >=60 CREATININE (test code = CREAT) mg/dL 0.7-1.3 BUN/CREATININE RATIO (test code = BUN/CREA) 10-20 TOTAL PROTEIN (test code = PROT) gram/dL 6.4-8.2 ALBUMIN (test code = ALB) g/dL 3.4-5.0 GLOBULIN (test code = GLOB) gram/dL 2.7-4.2 ALBUMIN/GLOBULIN RATIO (test code = A/G) 0.75-1.50 CALCIUM (test code = CA) mg/dL 8.5-10.1 BILIRUBIN TOTAL (test code = BILT) mg/dL 0.0-1.0 SGOT/AST (test code = AST) IUnit/L 15-37 SGPT/ALT (test code = ALT) IUnit/L 12-78 ALKALINE PHOSPHATASE TOTAL (test code = ALKP) IUnit/L 45-117 LIPID PROFILE (CORONARY RISK)2020-02-01 06:35:00* Test Item Value Reference Range Interpretation Comments TRIGLYCERIDES (test code = TRIG) mg/dL 20-150 CHOLESTEROL (test code = CHOL) mg/dL 0-200 CHOLESTEROL/HDL RATIO (test code = CHOLHDL) RATIO 0-4.9 HDL CHOLESTEROL (test code = HDL) mg/dL 40-60 LIPOPROTEIN LDL (test code = LDL) mg/dL 100-129 THYROID STIMULATING [id number] 06:35:00* Test Item Value Reference Range Interpretation Comments THYROID STIMULATING HORMONE (test code = TSH) uIU/mL 0.36-3.7 4 [id number] 06:31:00* Test Item Value Reference Range Interpretation Comments GLUBED (test code = GLUBED) 72 mg/dL 74-106 L Performed by certified tie in machine operator at [facility] COMPREHENSIVE METABOLIC [id number] 01:23:00* Test Item Value Reference Range Interpretation Comments SODIUM (test code = NA) 140 mmol/L 136-145 N POTASSIUM (test code = K) 4.2 mmol/L 3.5-5.1 N CHLORIDE (test code = CL) 108.0 mmol/L 98-107 H CARBON DIOXIDE (test code = CO2) 26.0 mmol/L 21-32 N ANION GAP (test code = GAP) 10.2 10-20 N GLUCOSE (test code = GLU) 100 mg/dL 74-106 N BLOOD UREA NITROGEN (test code = BUN) 30 mg/dL 7-18 H GLOMERULAR FILTRATION RATE (test code = GFR) 43 mL/min >=60 Estimated GFR by using Modified MDRD formula.Chronic kidney disease is defined as either kidney damageor GFR <60 mL/min/1.73 m2 for >3 months. CREATININE (test code = CREAT) 1.60 mg/dL 0.7-1.3 H BUN/CREATININE RATIO (test code = BUN/CREA) 18.8 10-20 N TOTAL PROTEIN (test code = PROT) 6.9 gram/dL 6.4-8.2 N ALBUMIN (test code = ALB) 3.3 g/dL 3.4-5.0 L GLOBULIN (test code = GLOB) 3.6 gram/dL 2.7-4.2 N ALBUMIN/GLOBULIN RATIO (test code = A/G) 0.9 0.75-1.50 N CALCIUM (test code = CA) 8.7 mg/dL 8.5-10.1 N BILIRUBIN TOTAL (test code = BILT) 0.50 mg/dL 0.0-1.0 N SGOT/AST (test code = AST) 19 IUnit/L 15-37 N SGPT/ALT (test code = ALT) 23 IUnit/L 12-78 N ALKALINE PHOSPHATASE TOTAL (test code = ALKP) 107 IUnit/L 45-117 N Note change in reference range due to change in reagent. COMPREHENSIVE METABOLIC [id number] 01:07:00* Test Item Value Reference Range Interpretation Comments SODIUM (test code = NA) 140 mmol/L 136-145 N POTASSIUM (test code = K) 4.2 mmol/L 3.5-5.1 N CHLORIDE (test code = CL) 108.0 mmol/L 98-107 H CARBON DIOXIDE (test code = CO2) mmol/L 21-32 ANION GAP (test code = GAP) 10-20 GLUCOSE (test code = GLU) mg/dL 74-106 BLOOD UREA NITROGEN (test code = BUN) mg/dL 7-18 GLOMERULAR FILTRATION RATE (test code = GFR) mL/min >=60 CREATININE (test code = CREAT) mg/dL 0.7-1.3 BUN/CREATININE RATIO (test code = BUN/CREA) 10-20 TOTAL PROTEIN (test code = PROT) gram/dL 6.4-8.2 ALBUMIN (test code = ALB) g/dL 3.4-5.0 GLOBULIN (test code = GLOB) gram/dL 2.7-4.2 ALBUMIN/GLOBULIN RATIO (test code = A/G) 0.75-1.50 CALCIUM (test code = CA) mg/dL 8.5-10.1 BILIRUBIN TOTAL (test code = BILT) mg/dL 0.0-1.0 SGOT/AST (test code = AST) IUnit/L 15-37 SGPT/ALT (test code = ALT) IUnit/L 12-78 ALKALINE PHOSPHATASE TOTAL (test code = ALKP) IUnit/L 45-117 CBC W/AUTO [id number] 00:57:00* Test Item Value Reference Range Interpretation Comments WHITE BLOOD CELL (test code = WBC) 6.3 K/mm3 4.5-12.5 N RED BLOOD CELL (test code = RBC) 3.61 mill/mm3 4.0-5.8 L HEMOGLOBIN (test code = HGB) 11.5 gram/dL 13.0-17.5 L HEMATOCRIT (test code = HCT) 34.1 % 42.0-52.0 L MEAN CELL VOLUME (test code = MCV) 94.5 fL 80-98 N MEAN CELL HGB (test code = MCH) 31.9 picogram 27.0-33.0 N MEAN CELL HGB CONCETRATION (test code = MCHC) 33.7 gram/dL 33.0-36. 0 N RED CELL DISTRIBUTION WIDTH (test code = RDW) 12.9 % 11.6-16. 2 N RED CELL DISTRIBUTION WIDTH SD (test code = RDW-SD) 44.2 fL 37 .0-51.0 N PLATELET COUNT (test code = PLT) 133 K/mm3 150-450 L MEAN PLATELET VOLUME (test code = MPV) 9.9 fL 6.7-11.0 N NEUTROPHIL % (test code = NT%) 81.6 % 39.0-69.0 H IMMATURE GRANULOCYTE % (test code = IG%) 0.5 % 0.0-5.0 N LYMPHOCYTE % (test code = LY%) 9.3 % 25.0-55.0 L MONOCYTE % (test code = MO%) 7.8 % 0.0-10.0 N EOSINOPHIL % (test code = EO%) 0.5 % 0.0-5.0 N BASOPHIL % (test code = BA%) 0.3 % 0.0-1.0 N NUCLEATED RBC % (test code = NRBC%) 0.0 % 0-0 N NEUTROPHIL # (test code = NT#) 5.10 K/mm3 1.8-7.7 N IMMATURE GRANULOCYTE # (test code = IG#) 0.03 x10 3/uL 0-0.03 N LYMPHOCYTE # (test code = LY#) 0.58 K/mm3 1.0-5.0 L MONOCYTE # (test code = MO#) 0.49 K/mm3 0-0.8 N EOSINOPHIL # (test code = EO#) 0.03 K/mm3 0.0-0.5 N BASOPHIL # (test code = BA#) 0.02 K/mm3 0.0-0.2 N NUCLEATED RBC # (test code = NRBC#) 0.00 K/mm3 0.0-0.1 N MANUAL DIFF REQUIRED (test code = MDIFF) NO
--- NOTE | 2020-03-08 14:04 | Diagnostic Imaging Report ---
MRI of the abdomen dated 03/08/2020 Clinical history: Common bile duct stone Comment: Multiplanar T1 and T2-weighted images, respiratory triggered and breath toed MRCP sequences were obtained. 3-D reconstruction of the abdomen was performed for better evaluation of the biliary tree. The study is somewhat limited due to similar to motion artifact. The gallbladder is not visualized. No fluid collection is seen in the gallbladder fossa. MRCP demonstrates dilatation of the common hepatic and common bile ducts. No filling defect is seen in the. Ducts to suggest choledocholithiasis. Common bile duct measures approximately 10 mm in size. Pancreatic duct is normal-caliber. Liver is normal in size without focal abnormality. Liver is suboptimally evaluated secondary to lack of intravenous contrast. Spleen is normal in size. Pancreas and adrenals are unremarkable. Both kidneys are normal in size. No ascites is seen in the abdomen. Impression: 1. No choledocholithiasis. 2. Biliary dilatation secondary to post cystectomy changes. Signed by: Vikram Greenfield MD on 03/08/2020 2:01 PM
[2020-03-08 17:59] LABS: CREATINE KINASE 109 IU/L (30-200)
--- NOTE | 2020-03-08 19:32 | NUR ---
report given to oncoming nurse. pt stable at shift change.
--- NOTE | 2020-03-08 20:30 | NUR ---
RECEIVED PT IN BED AOX3 .NO CHEST PAIN RESPIRATIONS ARE EVEN AND UNLABORED .MRCP DONE .CALL LIGHT WITH IN REACH .CONTINUE TO MONITOR
[2020-03-08] MEDS: ATENOLOL 50 MG TAB PO SCH (23:12)
[2020-03-08] MEDS: OXYBUTYNIN CHLORIDE 5 MG TAB PO SCH (23:12)
[2020-03-09] VITALS (7 sets, daily range): BP systolic 139–161; BP diastolic 71–85
--- NOTE | 2020-03-09 04:48 | NUR ---
PT RESTED DURING THE NIGHT ,DENIES CHEST PAIN .NPO FOR STRESS TEST .CALL LIGHT WITH IN REACH CONTINUE TO MONITOR
[2020-03-09] MEDS: FAMOTIDINE 20 MG/2 ML VIAL IV SCH ×2 (05:00→16:51)
--- NOTE | 2020-03-09 06:51 | NUR ---
BEDSIDE REPORT GIVEN TO THE ONCOMING NURSE
[2020-03-09] MEDS ORDERED: GLIPIZIDE 5 MG TAB PO SCH (07:30)
[2020-03-09] MEDS: INSULIN LISPRO 100 UNIT/1 ML 3ML VIAL SQ SCH ×4 (07:30→20:48)
[2020-03-09] MEDS ORDERED: REGADENOSON 0.4 MG/5 ML SYR IV ONE (08:42)
[2020-03-09] MEDS ORDERED: METFORMIN HCL PO SCH (09:00)
[2020-03-09] MEDS ORDERED: NON-FORMULARY MEDICATION (Glipizide 10 MG) PO SCH (09:00)
[2020-03-09] MEDS ORDERED: SITAGLIPTIN PHOS PO SCH (09:00)
--- NOTE | 2020-03-09 09:00 | NUR ---
patient having periods of confusion. quickly reoriented. reminded him of plans for stress imaging this morning.
[2020-03-09] MEDS: GLIPIZIDE 5 MG TAB ER PO SCH (09:19)
[2020-03-09] MEDS: LISINOPRIL 20 MG TAB PO SCH (09:19)
[2020-03-09] MEDS: PRASUGREL 10 MG TAB PO SCH (09:19)
[2020-03-09] MEDS: PANTOPRAZOLE SOD 40 MG TABEC PO SCH (09:19)
[2020-03-09] MEDS: DILTIAZEM HCL 30 MG TAB PO SCH ×2 (09:19→16:50)
[2020-03-09] MEDS: CITALOPRAM HYDROBROMIDE 20 MG TAB PO SCH ×2 (09:19→16:51)
[2020-03-09] MEDS: SITAGLIPTIN 100 MG TAB PO SCH ×2 (09:19→16:51)
[2020-03-09] MEDS: METFORMIN HCL 500 MG TAB PO SCH ×2 (09:19→16:51)
[2020-03-09] MEDS: ASPIRIN 81 MG ENTERIC COATED PO SCH (09:19)
--- NOTE | 2020-03-09 09:42 | Consultation ---
DATE OF CONSULTATION: 03/08/2020 Cardiology Consult Note CHIEF COMPLAINT: Chest pain. HISTORY OF PRESENT ILLNESS: The patient is a 74-year-old man, no previous history of cardiovascular issues. Comorbidities include hypertension, hyperlipidemia, and diabetes, who presents with episode of substernal heaviness in the chest. Denies any shortness of breath, lower extremity edema, orthopnea, or PND. The patient is unclear on his previous cardiac history. He denied having had heart attacks or stents in the past, however, he is currently on prasugrel. REVIEW OF SYSTEMS: As per HPI, otherwise negative. PAST MEDICAL HISTORY: As described in the HPI. SOCIAL HISTORY: Does not smoke, drink, or abuse drugs. FAMILY HISTORY: Noncontributory. OUTPATIENT MEDICATIONS: Reviewed. ALLERGIES: NO KNOWN DRUG ALLERGIES. PHYSICAL EXAMINATION: VITAL SIGNS: Temperature afebrile, pulse 66, respiratory rate 18, blood pressure 170/82, and saturating 100% on 2 L nasal cannula. GENERAL: An elderly man, in no acute distress, well-developed, well-nourished. CARDIOVASCULAR: Regular rate and rhythm. No murmurs, rubs, or gallops. LUNGS: Clear to auscultation. ABDOMEN: Obese, soft, nontender, and nondistended. NEURO AND PSYCH: Alert and oriented to person, place, and time. Normal affect. INPATIENT MEDICATIONS: Reviewed. LABORATORY DATA: Reviewed. Notable for GFR 48. Troponins negative x3. IMAGING DATA: Reviewed. MRCP showed no cholelithiasis. TELEMETRY DATA: Reviewed. Telemetry showed normal sinus rhythm. No significant arrhythmias. ASSESSMENT AND PLAN: 1. Chest pain. 2. Hypertension. 3. Diabetes. 4. Hyperlipidemia. PLAN: Plan for nuclear stress test and echocardiogram tomorrow. Further recommendations upon results of the testing. Thank you for this consult. We will continue to follow. MD RACIEL Argueta/JANIS /[id number]
--- NOTE | 2020-03-09 10:00 | NUR ---
patient came to desk stating he had misplaced his wallet. I searched room and did not see it, but did not see his wallet this morning. called patent's Uyen and she confirmed that she does have patient's wallet at home. patient is aware.
--- NOTE | 2020-03-09 10:38 | NUR ---
patient leaving unit to go [place] [facility]
--- NOTE | 2020-03-09 11:15 | NUR ---
Rapid response called overhead to imaging. I was notified that patient had tripped and fell in imaging department. Skin tear to left elbow- cleansed and covered. Patient denies any pain, & denies hitting his head. Attending physician notified, no orders received.
--- NOTE | 2020-03-09 13:10 | NUR ---
patient returned to room 295 after stress imaging. at bedside. doing well. no complaints of pain. wctm.
[2020-03-09] MEDS ORDERED: ACETAMINOPHEN 325 MG TAB PO PRN (15:00)
[2020-03-09] MEDS ORDERED: ACETAMINOPHEN/CODEINE 300MG - 30MG TAB PO PRN (15:30)
--- NOTE | 2020-03-09 15:40 | NUR ---
patient leaving unit for CT scan.
--- NOTE | 2020-03-09 16:19 | Diagnostic Imaging Report ---
History:Fall, altered mental status Comparison studies: None Technique: Axial images were obtained from the skull base to the vertex. Coronal and sagittal images reconstructed from the axial data. Dose modulation, iterative reconstruction, and/or weight based adjustment of the mA/kV was utilized to reduce the radiation dose to as low as reasonably achievable. Intravenous contrast: None Findings: Scalp/skull: No abnormalities. Extra-axial spaces: No masses. No fluid collections. Brain sulci: Moderately prominent. Ventricles: Moderate compensatory dilatation. No hydrocephalus. Parenchyma: Subtle hypodensities in the supratentorial white matter are small vessel ischemic changes. No masses, hemorrhage, acute or chronic cortical vascular insults. Sellar/suprasellar region: No abnormalities. Craniocervical junction: Patent foramen magnum. No Chiari one malformation. Incidental findings: Subtle atherosclerotic calcifications in the carotid siphons . Impression: No acute abnormalities. Chronic findings: 1. Moderate generalized volume loss. 2. Mild supratentorial white matter small vessel ischemic changes. Signed by: Dr. Isaak Fuller M.D. on 03/09/2020 4:16 PM
--- NOTE | 2020-03-09 19:35 | NUR ---
Received bedside report from day nurse. Patient appears very confused and disordered, and keeps trying to get out of bed despite education on fall risk and prevention. Paged Dr. Oviedo for orders and awaiting return call.
--- NOTE | 2020-03-09 19:40 | NUR ---
Received return call from Dr. Velasquez. Orders for 1:1 sitter.
[2020-03-09] MEDS: OXYBUTYNIN CHLORIDE 5 MG TAB PO SCH (20:48)
[2020-03-09] MEDS: ATENOLOL 50 MG TAB PO SCH (20:48)
--- NOTE | 2020-03-09 23:41 | Progress Note ---
DATE: 03/09/2020 Cardiology Progress Note SUBJECTIVE: He had a stress test today. While he was waiting in the hallway for stress test, he tumbled and fell. No obvious injuries. However, per his , he is a little bit confused and altered. OBJECTIVE: VITAL SIGNS: Temperature afebrile, pulse 64, respiratory rate 20, blood pressure 139/71, saturating 97% on room air. GENERAL: Elderly man, in no acute distress. Sleeping in the chair. CARDIOVASCULAR: Regular rate and rhythm. No murmurs, rubs, or gallops. LUNGS: Clear to auscultation anteriorly. ABDOMEN: Obese, soft, nontender, and nondistended. NEURO AND PSYCH: Alert and oriented to person, place, and time. Normal affect. INPATIENT MEDICATIONS: Reviewed. LABORATORY DATA: Reviewed. TELEMETRY DATA: Reviewed, shows normal sinus rhythm. IMAGING DATA: Nuclear stress test images were reviewed. Overall shows normal LV ejection fraction about 64% and no significant perfusion abnormalities. ASSESSMENT: 1. Chest pain. 2. Abdominal pain. 3. Coronary artery disease, status post percutaneous coronary intervention in the past. 4. Hypertension. 5. Hyperlipidemia. 6. Diabetes. 7. Altered mental status. PLAN: Nuclear stress test was done, which showed normal LV function and normal LV perfusion. Abdominal pain workup is ongoing. Per primary team, continue his dual antiplatelet therapy as he seems to be tolerating it fine. Already ruled out for acute PA at admission. No further Cardiovascular workup needed at this time. We will continue to monitor on telemetry. Once other medical issues resolve, he is okay to be discharged from a Cardiovascular standpoint and follow up in clinic 1 to 2 weeks post discharge for CAD. Thank you for this consult. We will continue to follow. MD RACIEL Argueta/JANIS /[id number]
--- NOTE | 2020-03-10 00:39 | NUR ---
Patient refusing telemetry. Denies chest pain. Paged Dr. Aden and received orders to DC tele.
[2020-03-10 04:00] VITALS: BP 155/79
[2020-03-10] MEDS: FAMOTIDINE 20 MG/2 ML VIAL IV SCH (05:25)
--- NOTE | 2020-03-10 07:12 | NUR ---
Bedside report given to oncoming nurse. Patient awake and sitting on couch, no s/s of distress at this time. 1:1 sitter at bedside. All safety measures in place.
[2020-03-10 07:18] LABS: BASOPHILS # (AUTO) 0.1 (0.0-0.1); BASOPHILS % 0.6 % (0.0-1.0); EOSINOPHILS # (AUTO) 0.2 (0.0-0.4); EOSINOPHILS % 1.9 % (0.0-6.0); HEMATOCRIT 41.4 % (38.2-49.6); HEMOGLOBIN 13.4 g/dL (14.0-18.0); LYMPHOCYTES # (AUTO) 1.5 (1.0-3.2); LYMPHOCYTES % 17.8 % (18.0-39.1); MEAN CORPUSCULAR HEMOGLOBIN 30.4 pg (28-32); MEAN CORPUSCULAR HGB CONC 32.4 g/dL (31-35); MEAN CORPUSCULAR VOLUME 93.9 fL (81-99); MONOCYTES # (AUTO) 0.7 (0.2-0.8); MONOCYTES % 7.9 % (4.4-11.3); NEUTROPHILS # (AUTO) 6.1 (2.1-6.9); NEUTROPHILS % 71.4 % (38.7-80.0); PLATELET COUNT 214 x10e3/uL (140-360); RED BLOOD COUNT 4.41 x10e6/uL (4.3-5.7); RED CELL DISTRIBUTION WIDTH 13.4 % (11.7-14.4)
[2020-03-10 07:35] LABS: ANION GAP 16.7 mmol/L (8-16); CALCIUM 9.7 mg/dL (8.4-10.2); CREATININE, SERUM 1.76 mg/dL (0.72-1.25); POTASSIUM 4.7 mmol/L (3.5-5.1)
[2020-03-10 08:00] VITALS: BP 137/83
[2020-03-10 09:00] VITALS: BP 137/83
[2020-03-10] MEDS: INSULIN LISPRO 100 UNIT/1 ML 3ML VIAL SQ SCH ×2 (09:30→12:37)
[2020-03-10] MEDS: GLIPIZIDE 5 MG TAB ER PO SCH (10:27)
[2020-03-10] MEDS: SITAGLIPTIN 100 MG TAB PO SCH (10:27)
[2020-03-10] MEDS: METFORMIN HCL 500 MG TAB PO SCH (10:27)
[2020-03-10] MEDS: DILTIAZEM HCL 30 MG TAB PO SCH (10:30)
--- NOTE | 2020-03-10 10:37 | Progress Note ---
DATE: SUBJECTIVE: Mr. Vikram Cole who came in with chest pain. The patient was having stress test, had a tumble and fall and ever since, the patient has been having some acute mental status changes. CT scan was ordered and done by Dr. Oviedo, which has been normal. The patient is still currently confused and has signs and symptoms of encephalopathy. Currently, there is a sitter in the room and the patient is still confused. OBJECTIVE: VITAL SIGNS: Temperature is 97.7, pulse of 60, respirations of 20, blood pressure is 155/79, pulse oximetry of 100%. HEENT: Normocephalic and atraumatic. Pupils are reactive. CVS: S1 and S2 normal. Regular rate and rhythm. LUNGS: Clear. ABDOMEN: Nontender and nondistended. EXTREMITIES: No clubbing, no cyanosis, no edema. LABORATORY VALUES: From , white count is 7.89, hemoglobin of 13, hematocrit 41.5, and the chemistries, glucose is still running high at 263, troponins have been negative. Serology; carcamo virus not detected. Microbiology; urine culture no growth again. IMAGING DATA: Imaging done yesterday with CT of the brain was no acute abnormalities, moderate generalized volume loss. ASSESSMENT: Mr. Vikram Cole with: 1. Chest pain, status post stress test. Overall, LV function was normal and nuclear test was negative for any perfusion abnormalities. 2. Abdominal pain. 3. Coronary artery disease, status post percutaneous transluminal coronary angioplasty. 4. Hypertension. 5. Altered mental status. 6. Encephalopathy of unknown origin at this time. PLAN: Continue to monitor the patient. The patient's mentation has improved from yesterday. We will continue monitoring him and further recommendation per clinical course. Possible discharge in 1 to 2 days depending on the disposition and on improvement of his mental status. MD STACI Talavera/MODL /[id number]
[2020-03-10] MEDS: PRASUGREL 10 MG TAB PO SCH (10:54)
[2020-03-10] MEDS: CITALOPRAM HYDROBROMIDE 20 MG TAB PO SCH (10:54)
[2020-03-10] MEDS: ASPIRIN 81 MG ENTERIC COATED PO SCH (10:54)
[2020-03-10] MEDS: PANTOPRAZOLE SOD 40 MG TABEC PO SCH (10:54)
[2020-03-10 11:00] VITALS: BP 164/88
[2020-03-10] MEDS: LISINOPRIL 20 MG TAB PO SCH (11:11)
--- NOTE | 2020-03-10 11:33 | Progress Note ---
DATE: Cardiology Progress Note SUBJECTIVE: The patient has no complaints this morning. However, quite disoriented and has a sitter at the bedside. OBJECTIVE: VITAL SIGNS: Temperature 97.7, pulse 69, respiratory rate 20, blood pressure 155/79, and oxygen saturation 100% on room air. GENERAL: Alert and oriented x1. Sitting comfortably in the chair with the sitter at the bedside. NECK: Supple. No JVD noted. LUNGS: Clear to auscultation throughout. CARDIOVASCULAR: Regular rate and rhythm. No murmurs. No gallops. ABDOMEN: Rounded, soft, nontender. CARDIOVASCULAR MEDICATIONS: 1. Atenolol 50 mg p.o. at bedtime. 2. Diltiazem 30 mg p.o. b.i.d. 3. Lisinopril 20 mg p.o. daily. 4. Prasugrel 10 mg p.o. daily. 5. Aspirin 81 mg p.o. daily. LABORATORY DATA: WBC 8.56, hemoglobin 13.4, hematocrit 41.4, platelets 214. Sodium 143, potassium 4.7, BUN 29, creatinine 1.76. TELEMETRY: Not on tele any longer. IMPRESSION: 1. Chest pain. 2. Abdominal pain. 3. Coronary artery disease, status post PCI in the past. 4. Hypertension. 5. Hyperlipidemia. 6. Diabetes mellitus. 7. Altered mental status. PLAN: Nuclear stress test was done which showed normal LV function and normal perfusion. Abdominal workup has been ongoing. Continue dual antiplatelet therapy. This patient has been ruled out for acute ME during this admission. No further cardiac workup is indicated at this time. Medications adjusted and statin added. We will continue to monitor this patient. Once he is discharged, he will follow up with Cardiology in 1 to 2 weeks. Continue to monitor his mental status changes. MD TELMA Wang/JANIS /[id number]
--- NOTE | 2020-03-10 14:40 | NUR ---
Patient discharged home verbalized understanding of d/c instructions. IV access discontinued, patient had a skin tear lateral to IV site, cleaned with NS padded dry applied Xenaderm dressing and covered with dry gauze taped with silk tape.
[2020-03-10] MEDS ORDERED: ATORVASTATIN 20 MG TAB PO SCH (21:00)
== END 2020-03-10 14:41 | disposition home or self-care (01) ==
LOC: ER 14:14 → ERHOLD 16:54 → MED/SURG3 20:36
PROVIDERS: ADMIT Internal Medicine; ATTEND Internal Medicine
DX: R07.89 Other chest pain (principal); R10.13 Epigastric pain; E11.22 Type 2 diabetes mellitus with diabetic chronic kidney disease; I12.9 Hypertensive chronic kidney disease with stage 1 through stage 4 chronic kidney disease, or unspecified chronic kidney disease; N18.3 Chronic kidney disease, stage 3 (moderate); Z82.49 Family history of ischemic heart disease and other diseases of the circulatory system; E66.01 Morbid (severe) obesity due to excess calories; Z68.36 Body mass index [BMI] 36.0-36.9, adult; E78.5 Hyperlipidemia, unspecified; K21.9 Gastro-esophageal reflux disease without esophagitis; F41.9 Anxiety disorder, unspecified; I25.10 Atherosclerotic heart disease of native coronary artery without angina pectoris; W01.0XXA Fall on same level from slipping, tripping and stumbling without subsequent striking against object, initial encounter; Y92.238 Other place in hospital as the place of occurrence of the external cause; G93.40 Encephalopathy, unspecified; Z79.84 Long term (current) use of oral hypoglycemic drugs
CPT/HCPCS: 36415 ×3; 70450; 71045; 74176; 74181; 78452; 80048 ×2; 80053; 80061; 81001; 82150; 82550 ×2; 82553 ×2; 82948 ×4; 83690; 84484 ×2; 85025 ×3; 85610; 85730; 87086 ×2; 87635; 93005; 93017; 93306; 96372; 99284; A9502; G0378 ×4; J2785; J7030; S0164 ×3

== ENCOUNTER → 2021-08-01 | Outpatient (CLI) | payer MEDICARE ==
[~2021-08-01] MED LIST changes: +DIATRIZOATE MEGL/DIATRIZOA SOD 30 ML BTL PO ONE; +IOPAMIDOL 370 MG/ML 200 ML INFUS..BTL INJ ONE; +SODIUM CHLORIDE 0.9% 250ML 250 ML ONE; +SODIUM CHLORIDE 0.9% 500ML 500 ML ONE; +SODIUM CHLORIDE 0.9% 50ML 50 ML ONE
[2021-08-01 12:51] LABS: CREATININE, SERUM 1.34 mg/dL (0.72-1.25)
== END ==
LOC: CT 11:55
PROVIDERS: ATTEND Internal Medicine
DX: R10.84 Generalized abdominal pain (principal)
CPT/HCPCS: 36415; 74177; 82565; 84520; J7040; J7050; Q9967

== ENCOUNTER 2021-12-05 12:14 | Inpatient (IN) | payer MEDICARE ==
[~2021-12-05] VITALS: Ht 177.8 cm; Wt 108.0 kg
[~2021-12-05 12:14] MED LIST changes: -DIATRIZOATE MEGL/DIATRIZOA SOD 30 ML BTL PO ONE; -IOPAMIDOL 370 MG/ML 200 ML INFUS..BTL INJ ONE; -SODIUM CHLORIDE 0.9% 250ML 250 ML ONE; -SODIUM CHLORIDE 0.9% 500ML 500 ML ONE; -SODIUM CHLORIDE 0.9% 50ML 50 ML ONE
[2021-12-05 12:51] LABS: BASOPHILS # (AUTO) 0.1 (0.0-0.1); BASOPHILS % 0.3 % (0.0-1.0); EOSINOPHILS # (AUTO) 0.7 (0.0-0.4); EOSINOPHILS % 4.2 % (0.0-6.0); HEMATOCRIT 33.2 % (38.2-49.6); HEMOGLOBIN 10.3 g/dL (14.0-18.0); LYMPHOCYTES # (AUTO) 0.9 (1.0-3.2); LYMPHOCYTES % 5.7 % (18.0-39.1); MEAN CORPUSCULAR HEMOGLOBIN 29.8 pg (28-32); MONOCYTES # (AUTO) 0.8 (0.2-0.8); MONOCYTES % 4.7 % (4.4-11.3); NEUTROPHILS % 84.5 % (38.7-80.0); PLATELET COUNT 222 x10e3/uL (140-360); RED BLOOD COUNT 3.46 x10e6/uL (4.3-5.7); RED CELL DISTRIBUTION WIDTH 13.8 % (11.7-14.4)
[2021-12-05 13:17] LABS: ALBUMIN 3.5 g/dL (3.5-5.0); ALBUMIN/GLOBULIN RATIO 1.1 (0.8-2.0); ALKALINE PHOSPHATASE 88 IU/L (40-150); ANION GAP 16.9 mmol/L (8-16); BLOOD UREA NITROGEN 30 mg/dL (7-26); BUN/CREATININE RATIO 17 (6-25); CARBON DIOXIDE 18 mmol/L (22-29); CHLORIDE 106 mmol/L (98-107); CREATININE, SERUM 1.74 mg/dL (0.72-1.25); EST GLOMERULAR FILTRATION RATE 38 ML/MIN (60-); GLUCOSE 169 mg/dL (74-118); POTASSIUM 4.9 mmol/L (3.5-5.1); SODIUM 136 mmol/L (136-145)
[2021-12-05 13:25] LABS: CREATINE KINASE MB 1.1 ng/mL (0-5.0)
[2021-12-05 13:30] VITALS: BP 133/63
[2021-12-05 13:41] LABS: ALANINE AMINOTRANSFERASE < 6 IU/L (0-55)
[2021-12-05 16:14] VITALS: BP 132/69
[2021-12-05 20:17] VITALS: BP 132/50
[2021-12-05] MEDS: FUROSEMIDE INJ 10 MG/ML 4 ML VIAL IV SCH (20:54)
[2021-12-05 20:57] LABS: CREATINE KINASE MB 0.9 ng/mL (0-5.0)
[2021-12-05 21:00] VITALS: BP 132/50
[2021-12-05 21:47] VITALS: BP 132/50
[2021-12-06] VITALS (9 sets, daily range): BP systolic 121–166; BP diastolic 60–81
[2021-12-06 05:28] LABS: BASOPHILS # (AUTO) 0.1 (0.0-0.1); BASOPHILS % 0.5 % (0.0-1.0); EOSINOPHILS % 10.7 % (0.0-6.0); HEMATOCRIT 36.3 % (38.2-49.6); HEMOGLOBIN 11.6 g/dL (14.0-18.0); LYMPHOCYTES % 10.4 % (18.0-39.1); MEAN CORPUSCULAR HEMOGLOBIN 29.4 pg (28-32); MEAN CORPUSCULAR VOLUME 92.1 fL (81-99); MONOCYTES # (AUTO) 0.6 (0.2-0.8); MONOCYTES % 6.1 % (4.4-11.3); NEUTROPHILS # (AUTO) 6.8 (2.1-6.9); NEUTROPHILS % 71.7 % (38.7-80.0); PLATELET COUNT 207 x10e3/uL (140-360); RED BLOOD COUNT 3.94 x10e6/uL (4.3-5.7); RED CELL DISTRIBUTION WIDTH 13.4 % (11.7-14.4)
[2021-12-06 05:49] LABS: ALBUMIN 3.3 g/dL (3.5-5.0); ALBUMIN/GLOBULIN RATIO 0.8 (0.8-2.0); ANION GAP 16.2 mmol/L (8-16); CALCIUM 9.4 mg/dL (8.4-10.2); POTASSIUM 4.2 mmol/L (3.5-5.1)
[2021-12-06 06:14] LABS: CREATININE, SERUM 1.56 mg/dL (0.72-1.25)
[2021-12-06] MEDS: GLIPIZIDE 5 MG TAB ER PO SCH (09:12)
[2021-12-06] MEDS: PRASUGREL 10 MG TAB PO SCH (09:12)
[2021-12-06] MEDS: LISINOPRIL 20 MG TAB PO SCH (09:12)
[2021-12-06] MEDS: CITALOPRAM HYDROBROMIDE 20 MG TAB PO SCH ×2 (09:12→16:52)
[2021-12-06] MEDS: PANTOPRAZOLE SOD 40 MG TABEC PO SCH (09:13)
[2021-12-06] MEDS: FUROSEMIDE INJ 10 MG/ML 4 ML VIAL IV SCH ×2 (09:14→21:22)
[2021-12-06] MEDS: ATENOLOL 50 MG TAB PO SCH (21:22)
[2021-12-06] MEDS: OXYBUTYNIN CHLORIDE 5 MG TAB PO SCH (21:22)
[2021-12-07] VITALS (9 sets, daily range): BP systolic 128–193; BP diastolic 61–87
[2021-12-07] MEDS: CITALOPRAM HYDROBROMIDE 20 MG TAB PO SCH ×2 (08:51→17:24)
[2021-12-07] MEDS: GLIPIZIDE 5 MG TAB ER PO SCH (08:51)
[2021-12-07] MEDS: PRASUGREL 10 MG TAB PO SCH (08:51)
[2021-12-07] MEDS: FUROSEMIDE INJ 10 MG/ML 4 ML VIAL IV SCH ×2 (08:51→20:12)
[2021-12-07] MEDS: LISINOPRIL 20 MG TAB PO SCH (08:52)
[2021-12-07] MEDS: PANTOPRAZOLE SOD 40 MG TABEC PO SCH (08:52)
[2021-12-07] MEDS: OXYBUTYNIN CHLORIDE 5 MG TAB PO SCH (20:12)
[2021-12-07] MEDS: CLONAZEPAM 0.5 MG TAB PO SCH (20:12)
[2021-12-07] MEDS: ATENOLOL 50 MG TAB PO SCH (20:13)
[2021-12-08] VITALS (8 sets, daily range): BP systolic 125–154; BP diastolic 63–103
[2021-12-08 05:30] LABS: BASOPHILS # (AUTO) 0.1 (0.0-0.1); BASOPHILS % 0.6 % (0.0-1.0); EOSINOPHILS # (AUTO) 0.6 (0.0-0.4); HEMATOCRIT 34.1 % (38.2-49.6); HEMOGLOBIN 11.1 g/dL (14.0-18.0); LYMPHOCYTES # (AUTO) 1.7 (1.0-3.2); LYMPHOCYTES % 22.1 % (18.0-39.1); MEAN CORPUSCULAR HEMOGLOBIN 29.6 pg (28-32); MEAN CORPUSCULAR HGB CONC 32.6 g/dL (31-35); MEAN CORPUSCULAR VOLUME 90.9 fL (81-99); MONOCYTES # (AUTO) 0.7 (0.2-0.8); MONOCYTES % 9.4 % (4.4-11.3); NEUTROPHILS # (AUTO) 4.7 (2.1-6.9); NEUTROPHILS % 60.1 % (38.7-80.0); PLATELET COUNT 258 x10e3/uL (140-360); RED BLOOD COUNT 3.75 x10e6/uL (4.3-5.7); RED CELL DISTRIBUTION WIDTH 13.3 % (11.7-14.4)
[2021-12-08 05:52] LABS: ANION GAP 19.8 mmol/L (8-16); CALCIUM 9.2 mg/dL (8.4-10.2); CREATININE, SERUM 1.81 mg/dL (0.72-1.25); POTASSIUM 3.8 mmol/L (3.5-5.1)
[2021-12-08] MEDS: FUROSEMIDE 40 MG TAB PO SCH (09:05)
[2021-12-08] MEDS: GLIPIZIDE 5 MG TAB ER PO SCH (09:05)
[2021-12-08] MEDS: PANTOPRAZOLE SOD 40 MG TABEC PO SCH (09:05)
[2021-12-08] MEDS: CITALOPRAM HYDROBROMIDE 20 MG TAB PO SCH ×2 (09:05→17:50)
[2021-12-08] MEDS: PRASUGREL 10 MG TAB PO SCH (09:05)
[2021-12-08] MEDS: OXYBUTYNIN CHLORIDE 5 MG TAB PO SCH (20:20)
[2021-12-08] MEDS: CLONAZEPAM 0.5 MG TAB PO SCH (20:20)
[2021-12-08] MEDS: ATENOLOL 50 MG TAB PO SCH (20:21)
[2021-12-09] VITALS (9 sets, daily range): BP systolic 133–150; BP diastolic 75–83
[2021-12-09 06:55] LABS: ANION GAP 17.5 mmol/L (8-16); CALCIUM 8.4 mg/dL (8.4-10.2); CREATININE, SERUM 1.9 mg/dL (0.72-1.25); POTASSIUM 3.5 mmol/L (3.5-5.1)
[2021-12-09] MEDS: GLIPIZIDE 5 MG TAB ER PO SCH (08:24)
[2021-12-09] MEDS: CITALOPRAM HYDROBROMIDE 20 MG TAB PO SCH ×2 (08:24→17:42)
[2021-12-09] MEDS: PRASUGREL 10 MG TAB PO SCH (08:24)
[2021-12-09] MEDS: PANTOPRAZOLE SOD 40 MG TABEC PO SCH (08:25)
[2021-12-09] MEDS: FUROSEMIDE 40 MG TAB PO SCH (08:25)
[2021-12-09] MEDS: ACETAMINOPHEN 325 MG TAB PO PRN (14:20)
[2021-12-09] MEDS: CLONAZEPAM 0.5 MG TAB PO SCH (20:27)
[2021-12-09] MEDS: ATENOLOL 50 MG TAB PO SCH (20:27)
[2021-12-09] MEDS: OXYBUTYNIN CHLORIDE 5 MG TAB PO SCH (20:27)
[2021-12-10] VITALS (8 sets, daily range): BP systolic 126–161; BP diastolic 74–85
[2021-12-10] MEDS ORDERED: CLONIDINE HCL 0.1 MG TAB PO PRN (05:00)
[2021-12-10 07:05] LABS: ALBUMIN 3.1 g/dL (3.5-5.0); ANION GAP 14.5 mmol/L (8-16); CALCIUM 8.7 mg/dL (8.4-10.2); CREATININE, SERUM 1.82 mg/dL (0.72-1.25); POTASSIUM 3.5 mmol/L (3.5-5.1)
[2021-12-10] MEDS: CITALOPRAM HYDROBROMIDE 20 MG TAB PO SCH ×2 (08:29→17:44)
[2021-12-10] MEDS: PRASUGREL 10 MG TAB PO SCH (08:29)
[2021-12-10] MEDS: FUROSEMIDE 40 MG TAB PO SCH (08:29)
[2021-12-10] MEDS: GLIPIZIDE 5 MG TAB ER PO SCH (08:29)
[2021-12-10] MEDS: PANTOPRAZOLE SOD 40 MG TABEC PO SCH (08:29)
[2021-12-10] MEDS: ACETAMINOPHEN 325 MG TAB PO PRN (13:20)
[2021-12-10] MEDS: OXYBUTYNIN CHLORIDE 5 MG TAB PO SCH (17:44)
[2021-12-10] MEDS ORDERED: BISACODYL 5 MG TAB EC PO SCH (18:00)
[2021-12-10] MEDS: ATENOLOL 50 MG TAB PO SCH (20:10)
[2021-12-10] MEDS: CLONAZEPAM 0.5 MG TAB PO SCH (20:10)
[2021-12-11 00:31] VITALS: BP 168/78
[2021-12-11 04:16] VITALS: BP 166/76
[2021-12-11 07:52] VITALS: BP 166/76
[2021-12-11] MEDS: FUROSEMIDE 40 MG TAB PO SCH (08:11)
[2021-12-11] MEDS: PANTOPRAZOLE SOD 40 MG TABEC PO SCH (08:11)
[2021-12-11] MEDS: CITALOPRAM HYDROBROMIDE 20 MG TAB PO SCH (08:11)
[2021-12-11] MEDS: PRASUGREL 10 MG TAB PO SCH (08:11)
[2021-12-11] MEDS: GLIPIZIDE 5 MG TAB ER PO SCH (08:11)
[2021-12-11 08:30] VITALS: BP 130/94
== END 2021-12-11 09:38 | disposition home or self-care (01) | DRG 291 ==
LOC: ER 12:22 → ERHOLD 12:24 → MED/SURG2 13:16
PROVIDERS: ADMIT Internal Medicine; ATTEND Internal Medicine
DX: I13.0 Hypertensive heart and chronic kidney disease with heart failure and stage 1 through stage 4 chronic kidney disease, or unspecified chronic kidney disease (principal); I50.33 Acute on chronic diastolic (congestive) heart failure; N17.9 Acute kidney failure, unspecified; N18.30 Chronic kidney disease, stage 3 unspecified; D64.9 Anemia, unspecified; G20 Parkinson's disease; E66.9 Obesity, unspecified; Z68.34 Body mass index [BMI] 34.0-34.9, adult; F41.9 Anxiety disorder, unspecified; Z91.11 Patient's noncompliance with dietary regimen; Z20.822 Contact with and (suspected) exposure to COVID-19; I25.10 Atherosclerotic heart disease of native coronary artery without angina pectoris
CPT/HCPCS: 36415; 71045; 80048; 80053; 82550; 82553; 82948; 83605; 83880; 84484; 85025; 87040; 93005; 93306; 94799; 99284; J1940; U0002

== ENCOUNTER 2022-03-03 15:59 | Inpatient (IN) | payer MEDICARE ==
[~2022-03-03] VITALS: Ht 177.8 cm; Wt 86.6 kg
[2022-03-03 16:25] LABS: BASOPHILS % 0.3 % (0.0-1.0); EOSINOPHILS # (AUTO) 0.1 (0.0-0.4); EOSINOPHILS % 0.9 % (0.0-6.0); HEMATOCRIT 35.8 % (38.2-49.6); HEMOGLOBIN 11.8 g/dL (14.0-18.0); LYMPHOCYTES # (AUTO) 1.4 (1.0-3.2); LYMPHOCYTES % 18.1 % (18.0-39.1); MEAN CORPUSCULAR HEMOGLOBIN 30.6 pg (28-32); MONOCYTES # (AUTO) 0.5 (0.2-0.8); MONOCYTES % 6.1 % (4.4-11.3); NEUTROPHILS # (AUTO) 5.7 (2.1-6.9); NEUTROPHILS % 73.8 % (38.7-80.0); PLATELET COUNT 221 x10e3/uL (140-360); RED BLOOD COUNT 3.85 x10e6/uL (4.3-5.7); RED CELL DISTRIBUTION WIDTH 14.5 % (11.7-14.4)
[2022-03-03 16:43] LABS: ALBUMIN 3.4 g/dL (3.5-5.0); ALBUMIN/GLOBULIN RATIO 0.9 (0.8-2.0); ALKALINE PHOSPHATASE 79 IU/L (40-150); ANION GAP 21.6 mmol/L (8-16); BLOOD UREA NITROGEN 88 mg/dL (7-26); BUN/CREATININE RATIO 17 (6-25); CALCIUM 8.4 mg/dL (8.4-10.2); CARBON DIOXIDE 16 mmol/L (22-29); CHLORIDE 107 mmol/L (98-107); CREATININE, SERUM 5.08 mg/dL (0.72-1.25); EST GLOMERULAR FILTRATION RATE 11 ML/MIN (60-); POTASSIUM 4.6 mmol/L (3.5-5.1); SODIUM 140 mmol/L (136-145)
[2022-03-03 16:45] LABS: ALANINE AMINOTRANSFERASE < 6 IU/L (0-55); GLUCOSE 33 mg/dL (74-118)
[2022-03-03 16:49] LABS: CLARITY,URINE SL CLOUDY (CLEAR); COLOR,URINE YELLOW (YELLOW)
[2022-03-03 16:50] LABS: KETONES,URINE NEGATIVE (NEGATIVE); LEUKOCYTE ESTERASE ,URINE NEGATIVE (NEGATIVE); NITRITE,URINE NEGATIVE (NEGATIVE); PROTEIN,URINE DIPSTICK 1+ (NEGATIVE); URINE UROBILINOGEN 0.2 mg/dL (0.2 - 1)
[2022-03-03] MEDS ORDERED: DEXTROSE 50% SYRINGE 50 ML IV ONE (16:58)
[2022-03-03 16:59] LABS: AMORPHOUS SEDIMENT,URINE FEW (FEW); BACTERIA,URINE MODERATE /HPF
[2022-03-03] MEDS ORDERED: DEXTROSE 50% SYRINGE 50 ML IV STA (17:15)
[2022-03-03] MEDS ORDERED: SODIUM CHLORIDE 0.9% 1000ML 1,000 ML IV SCH ×2 (17:45)
[2022-03-03] MEDS ORDERED: ONDANSETRON HCL INJ 2MG/ML 2ML 2 MG/ML VIAL IV PRN (17:45)
[2022-03-03] MEDS ORDERED: SODIUM CHLORIDE 0.9% IV ONE ×2 (18:30)
[2022-03-03] MEDS ORDERED: DEXTROSE 10% IV ONE ×2 (18:30)
[2022-03-03] MEDS: METRONIDAZOLE 750MG/NS 150ML 150 ML IV SCH (18:44)
[2022-03-03] MEDS ORDERED: DEXTROSE 10% 1,000 ML IV ONE (18:57)
[2022-03-03 21:30] VITALS: BP 123/94
[2022-03-03 21:45] VITALS: BP 123/94
[2022-03-04] VITALS (9 sets, daily range): BP systolic 109–149; BP diastolic 64–103
[2022-03-04] MEDS ORDERED: DEXTROSE 5%/0.9% SOD CHL 1,000 ML IV SCH (04:45)
[2022-03-04 05:02] LABS: BASOPHILS % 0.3 % (0.0-1.0); EOSINOPHILS # (AUTO) 0.1 (0.0-0.4); HEMOGLOBIN 10.3 g/dL (14.0-18.0); LYMPHOCYTES # (AUTO) 1.1 (1.0-3.2); LYMPHOCYTES % 18.1 % (18.0-39.1); MEAN CORPUSCULAR HEMOGLOBIN 30.7 pg (28-32); MEAN CORPUSCULAR HGB CONC 33.2 g/dL (31-35); MEAN CORPUSCULAR VOLUME 92.5 fL (81-99); MONOCYTES # (AUTO) 0.5 (0.2-0.8); MONOCYTES % 8.3 % (4.4-11.3); NEUTROPHILS # (AUTO) 4.4 (2.1-6.9); PLATELET COUNT 171 x10e3/uL (140-360); RED BLOOD COUNT 3.35 x10e6/uL (4.3-5.7)
[2022-03-04] MEDS ORDERED: DEXTROSE 50% SYRINGE 50 ML IV PRN ×2 (05:30→22:45)
[2022-03-04 05:43] LABS: ANION GAP 15.6 mmol/L (8-16); CALCIUM 7.5 mg/dL (8.4-10.2); CREATININE, SERUM 4.5 mg/dL (0.72-1.25); MAGNESIUM 1.5 MG/DL (1.3-2.1); PHOSPHORUS 3.8 MG/DL (2.3-4.7); POTASSIUM 3.6 mmol/L (3.5-5.1)
[2022-03-04] MEDS: METRONIDAZOLE 750MG/NS 150ML 150 ML IV SCH ×2 (06:28→18:18)
[2022-03-04] MEDS: PRASUGREL 10 MG TAB PO SCH (07:56)
[2022-03-04] MEDS: CITALOPRAM HYDROBROMIDE 20 MG TAB PO SCH ×3 (07:56→16:04)
[2022-03-04] MEDS ORDERED: SODIUM BICARBONATE 8.4% 150 ML in DEXTROSE 5% 1,000 ML IV ONE (13:00)
[2022-03-04] MEDS ORDERED: SINEMET 25-1001 EACH PO (13:09)
[2022-03-04] MEDS ORDERED: CLONAZEPAM0.5 MG PO (13:09)
[2022-03-04 14:30] LABS: CREATININE,URINE RANDOM 90.68 mg/dL (63-166); TOTAL PROTEIN, URINE 27.6 mg/dL (1-14)
[2022-03-04] MEDS: CARBIDOPA/LEVODOPA 25/100 TAB PO SCH ×2 (15:59→21:00)
[2022-03-04] MEDS: CLONAZEPAM 0.5 MG TAB PO SCH (21:00)
[2022-03-04] MEDS: ATENOLOL 50 MG TAB PO SCH (21:01)
[2022-03-05] VITALS (22 sets, daily range): BP systolic 111–170; BP diastolic 63–97
[2022-03-05 04:58] LABS: BASOPHILS % 0.5 % (0.0-1.0); EOSINOPHILS # (AUTO) 0.1 (0.0-0.4); EOSINOPHILS % 1.6 % (0.0-6.0); HEMATOCRIT 31.7 % (38.2-49.6); HEMOGLOBIN 10.7 g/dL (14.0-18.0); LYMPHOCYTES # (AUTO) 1.1 (1.0-3.2); LYMPHOCYTES % 17.1 % (18.0-39.1); MEAN CORPUSCULAR HEMOGLOBIN 30.7 pg (28-32); MEAN CORPUSCULAR HGB CONC 33.8 g/dL (31-35); MEAN CORPUSCULAR VOLUME 90.8 fL (81-99); MONOCYTES # (AUTO) 0.5 (0.2-0.8); MONOCYTES % 8.2 % (4.4-11.3); NEUTROPHILS # (AUTO) 4.6 (2.1-6.9); NEUTROPHILS % 72.1 % (38.7-80.0); PLATELET COUNT 174 x10e3/uL (140-360); RED BLOOD COUNT 3.49 x10e6/uL (4.3-5.7); RED CELL DISTRIBUTION WIDTH 14.1 % (11.7-14.4)
[2022-03-05 06:08] LABS: ALBUMIN 2.7 g/dL (3.5-5.0); ALKALINE PHOSPHATASE 64 IU/L (40-150); ANION GAP 14.7 mmol/L (8-16); BLOOD UREA NITROGEN 63 mg/dL (7-26); BUN/CREATININE RATIO 16 (6-25); CALCIUM 7.6 mg/dL (8.4-10.2); CARBON DIOXIDE 22 mmol/L (22-29); CHLORIDE 109 mmol/L (98-107); CREATININE, SERUM 3.96 mg/dL (0.72-1.25); EST GLOMERULAR FILTRATION RATE 15 ML/MIN (60-); GLUCOSE 209 mg/dL (74-118); POTASSIUM 3.7 mmol/L (3.5-5.1); SODIUM 142 mmol/L (136-145)
[2022-03-05 06:10] LABS: ALANINE AMINOTRANSFERASE < 6 IU/L (0-55)
[2022-03-05] MEDS: METRONIDAZOLE 750MG/NS 150ML 150 ML IV SCH ×2 (06:17→18:24)
[2022-03-05] MEDS: INSULIN REGULAR, HUMAN 100 UNIT/1 ML SQ SCH ×4 (07:58→21:17)
[2022-03-05] MEDS: PRASUGREL 10 MG TAB PO SCH (09:18)
[2022-03-05] MEDS: CARBIDOPA/LEVODOPA 25/100 TAB PO SCH ×3 (09:18→21:28)
[2022-03-05] MEDS: CITALOPRAM HYDROBROMIDE 20 MG TAB PO SCH ×2 (09:18→18:24)
[2022-03-05] MEDS: DEXTROSE 5%/0.225% SOD CHL 1,000 ML IV SCH (12:28)
[2022-03-05] MEDS: ACETAMINOPHEN 325 MG TAB PO PRN (13:23)
[2022-03-05] MEDS: CLONAZEPAM 0.5 MG TAB PO SCH (21:28)
[2022-03-05] MEDS: ATENOLOL 50 MG TAB PO SCH (21:29)
[2022-03-06] VITALS (15 sets, daily range): BP systolic 147–175; BP diastolic 57–152
[2022-03-06] MEDS: DEXTROSE 5%/0.225% SOD CHL 1,000 ML IV SCH (01:35)
[2022-03-06 04:58] LABS: BASOPHILS % 0.5 % (0.0-1.0); EOSINOPHILS # (AUTO) 0.1 (0.0-0.4); EOSINOPHILS % 1.7 % (0.0-6.0); HEMATOCRIT 33.4 % (38.2-49.6); HEMOGLOBIN 11.1 g/dL (14.0-18.0); LYMPHOCYTES # (AUTO) 1.3 (1.0-3.2); LYMPHOCYTES % 15.5 % (18.0-39.1); MEAN CORPUSCULAR HGB CONC 33.2 g/dL (31-35); MEAN CORPUSCULAR VOLUME 93.3 fL (81-99); MONOCYTES # (AUTO) 0.7 (0.2-0.8); MONOCYTES % 8.3 % (4.4-11.3); NEUTROPHILS % 73.5 % (38.7-80.0); PLATELET COUNT 197 x10e3/uL (140-360); RED BLOOD COUNT 3.58 x10e6/uL (4.3-5.7); RED CELL DISTRIBUTION WIDTH 14.6 % (11.7-14.4)
[2022-03-06 05:24] LABS: ALBUMIN 2.8 g/dL (3.5-5.0); ALBUMIN/GLOBULIN RATIO 0.9 (0.8-2.0); ALKALINE PHOSPHATASE 64 IU/L (40-150); ANION GAP 13.6 mmol/L (8-16); BLOOD UREA NITROGEN 49 mg/dL (7-26); BUN/CREATININE RATIO 15 (6-25); CARBON DIOXIDE 23 mmol/L (22-29); CHLORIDE 113 mmol/L (98-107); CREATININE, SERUM 3.35 mg/dL (0.72-1.25); EST GLOMERULAR FILTRATION RATE 18 ML/MIN (60-); GLUCOSE 125 mg/dL (74-118); POTASSIUM 3.6 mmol/L (3.5-5.1); SODIUM 146 mmol/L (136-145)
[2022-03-06 05:25] LABS: ALANINE AMINOTRANSFERASE < 6 IU/L (0-55)
[2022-03-06] MEDS: METRONIDAZOLE 750MG/NS 150ML 150 ML IV SCH ×2 (05:59→18:34)
[2022-03-06] MEDS: CITALOPRAM HYDROBROMIDE 20 MG TAB PO SCH ×2 (08:46→16:31)
[2022-03-06] MEDS: PRASUGREL 10 MG TAB PO SCH (08:46)
[2022-03-06] MEDS: CARBIDOPA/LEVODOPA 25/100 TAB PO SCH ×3 (08:46→21:15)
[2022-03-06] MEDS: INSULIN REGULAR, HUMAN 100 UNIT/1 ML SQ SCH ×4 (08:46→21:00)
[2022-03-06] MEDS ORDERED: DEXTROSE 5% 1,000 ML IV ONE (09:45)
[2022-03-06] MEDS: ATENOLOL 50 MG TAB PO SCH (21:15)
[2022-03-06] MEDS: CLONAZEPAM 0.5 MG TAB PO SCH (21:15)
[2022-03-06] MEDS ORDERED: LORAZEPAM INJ 2 MG/ML VIAL IV PRN (22:45)
[2022-03-07] VITALS (7 sets, daily range): BP systolic 133–168; BP diastolic 74–92
[2022-03-07] MEDS ORDERED: ZIPRASIDONE 20 MG VIAL IM PRN (00:45)
[2022-03-07] MEDS: METRONIDAZOLE 750MG/NS 150ML 150 ML IV SCH ×2 (05:36→17:34)
[2022-03-07 05:56] LABS: BASOPHILS # (AUTO) 0.1 (0.0-0.1); BASOPHILS % 0.6 % (0.0-1.0); EOSINOPHILS # (AUTO) 0.2 (0.0-0.4); EOSINOPHILS % 1.4 % (0.0-6.0); HEMATOCRIT 38.2 % (38.2-49.6); LYMPHOCYTES # (AUTO) 1.5 (1.0-3.2); LYMPHOCYTES % 13.9 % (18.0-39.1); MEAN CORPUSCULAR HEMOGLOBIN 30.5 pg (28-32); MEAN CORPUSCULAR HGB CONC 31.4 g/dL (31-35); MONOCYTES # (AUTO) 0.9 (0.2-0.8); MONOCYTES % 8.8 % (4.4-11.3); NEUTROPHILS # (AUTO) 7.9 (2.1-6.9); NEUTROPHILS % 74.9 % (38.7-80.0); PLATELET COUNT 176 x10e3/uL (140-360); RED BLOOD COUNT 3.94 x10e6/uL (4.3-5.7); RED CELL DISTRIBUTION WIDTH 14.9 % (11.7-14.4)
[2022-03-07 06:24] LABS: ALBUMIN 2.9 g/dL (3.5-5.0); ALKALINE PHOSPHATASE 71 IU/L (40-150); ANION GAP 12.8 mmol/L (8-16); BLOOD UREA NITROGEN 43 mg/dL (7-26); BUN/CREATININE RATIO 14 (6-25); CALCIUM 8.1 mg/dL (8.4-10.2); CARBON DIOXIDE 21 mmol/L (22-29); CHLORIDE 114 mmol/L (98-107); CREATININE, SERUM 3.06 mg/dL (0.72-1.25); EST GLOMERULAR FILTRATION RATE 20 ML/MIN (60-); GLUCOSE 148 mg/dL (74-118); MAGNESIUM 1.5 MG/DL (1.3-2.1); POTASSIUM 3.8 mmol/L (3.5-5.1); SODIUM 144 mmol/L (136-145)
[2022-03-07 06:25] LABS: ALANINE AMINOTRANSFERASE < 6 IU/L (0-55)
[2022-03-07] MEDS: INSULIN REGULAR, HUMAN 100 UNIT/1 ML SQ SCH ×4 (07:30→21:00)
[2022-03-07] MEDS: PRASUGREL 10 MG TAB PO SCH (09:00)
[2022-03-07] MEDS: CITALOPRAM HYDROBROMIDE 20 MG TAB PO SCH ×2 (09:00→16:13)
[2022-03-07] MEDS: CARBIDOPA/LEVODOPA 25/100 TAB PO SCH ×3 (09:00→21:24)
[2022-03-07] MEDS: DEXTROSE 5% 1,000 ML IV SCH (11:15)
[2022-03-07] MEDS ORDERED: MAGNESIUM SULFATE 2GM/50ML 50 ML IV ONE (11:30)
[2022-03-07] MEDS: ACETAMINOPHEN 325 MG TAB PO PRN (18:09)
[2022-03-07] MEDS: CLONAZEPAM 0.5 MG TAB PO SCH (21:24)
[2022-03-07] MEDS: ATENOLOL 50 MG TAB PO SCH (21:24)
[2022-03-08] VITALS: BP 171/90
[2022-03-08] MEDS ORDERED: MAGNESIUM/ALUMINUM/SIMETHICONE 30 ML UDC PO PRN (00:45)
[2022-03-08] MEDS ORDERED: HYDRALAZINE HCL 20 MG/ML VIAL IV ONE (00:45)
[2022-03-08] MEDS: DEXTROSE 5% 1,000 ML IV SCH ×2 (00:50→14:10)
[2022-03-08 04:00] VITALS: BP 176/89
[2022-03-08] MEDS ORDERED: HYDRALAZINE HCL 20 MG/ML VIAL IV PRN (04:15)
[2022-03-08] MEDS ORDERED: BISACODYL 5 MG TAB EC PO ONE (05:00)
[2022-03-08] MEDS: METRONIDAZOLE 750MG/NS 150ML 150 ML IV SCH (05:13)
[2022-03-08 06:36] LABS: ALBUMIN 3.2 g/dL (3.5-5.0); ALBUMIN/GLOBULIN RATIO 0.9 (0.8-2.0); ALKALINE PHOSPHATASE 75 IU/L (40-150); ANION GAP 15.9 mmol/L (8-16); BLOOD UREA NITROGEN 38 mg/dL (7-26); BUN/CREATININE RATIO 14 (6-25); CALCIUM 8.9 mg/dL (8.4-10.2); CARBON DIOXIDE 24 mmol/L (22-29); CHLORIDE 109 mmol/L (98-107); CREATININE, SERUM 2.74 mg/dL (0.72-1.25); EST GLOMERULAR FILTRATION RATE 23 ML/MIN (60-); GLUCOSE 228 mg/dL (74-118); POTASSIUM 3.9 mmol/L (3.5-5.1); SODIUM 145 mmol/L (136-145)
[2022-03-08 06:40] LABS: ALANINE AMINOTRANSFERASE < 6 IU/L (0-55)
[2022-03-08] MEDS: INSULIN REGULAR, HUMAN 100 UNIT/1 ML SQ SCH ×2 (07:30→11:30)
[2022-03-08 08:03] VITALS: BP 170/91
[2022-03-08] MEDS: CITALOPRAM HYDROBROMIDE 20 MG TAB PO SCH (09:00)
[2022-03-08] MEDS: PRASUGREL 10 MG TAB PO SCH (09:00)
[2022-03-08] MEDS: CARBIDOPA/LEVODOPA 25/100 TAB PO SCH ×2 (09:00→15:00)
[2022-03-08 09:17] VITALS: BP 170/91
[2022-03-08 12:04] VITALS: BP 155/82
[2022-03-08] MEDS ORDERED: BISACODYL 10 MG SUPP PR NR (14:30)
== END 2022-03-08 15:17 | disposition home or self-care (01) | DRG 391 ==
LOC: ER 17:48 → ERHOLD 17:55 → ICU 21:24 → MED/SURG2 03-06 17:36
PROVIDERS: ADMIT Internal Medicine; ATTEND Internal Medicine
DX: A09 Infectious gastroenteritis and colitis, unspecified (principal); G93.41 Metabolic encephalopathy; N17.0 Acute kidney failure with tubular necrosis; E11.649 Type 2 diabetes mellitus with hypoglycemia without coma; J45.909 Unspecified asthma, uncomplicated; E78.5 Hyperlipidemia, unspecified; E11.22 Type 2 diabetes mellitus with diabetic chronic kidney disease; D64.9 Anemia, unspecified; I12.9 Hypertensive chronic kidney disease with stage 1 through stage 4 chronic kidney disease, or unspecified chronic kidney disease; N18.32 Chronic kidney disease, stage 3b; G20 Parkinson's disease; F41.9 Anxiety disorder, unspecified; K21.9 Gastro-esophageal reflux disease without esophagitis; Z82.49 Family history of ischemic heart disease and other diseases of the circulatory system; Z86.73 Personal history of transient ischemic attack (TIA), and cerebral infarction without residual deficits; Z20.822 Contact with and (suspected) exposure to COVID-19
CPT/HCPCS: 36415; 71045; 74176; 80048; 80053; 81001; 82140; 82570; 82948; 83735; 84100; 84156; 84550; 85025; 93005; 93976; 94799; 96361; 96372; 99251; 99284; J0360; J0696; J1817; J2060; J2405; J3475; J3486; J7030; J7042; J7070; J7799; U0002

== ENCOUNTER 2022-03-11 17:46 | Emergency (ER) | payer MEDICARE ==
[~2022-03-11] VITALS: Ht 177.8 cm; Wt 86.6 kg
[~2022-03-11 17:46] MED LIST changes: +CLONAZEPAM0.5 MG PO; +SINEMET 25-1001 EACH PO
[2022-03-11 19:17] LABS: CLARITY,URINE CLEAR (CLEAR); COLOR,URINE YELLOW (YELLOW)
[2022-03-11 19:18] LABS: KETONES,URINE NEGATIVE (NEGATIVE); LEUKOCYTE ESTERASE ,URINE NEGATIVE (NEGATIVE); NITRITE,URINE NEGATIVE (NEGATIVE); PROTEIN,URINE DIPSTICK 1+ (NEGATIVE); URINE UROBILINOGEN 0.2 mg/dL (0.2 - 1)
[2022-03-11 19:20] LABS: AMORPHOUS SEDIMENT,URINE FEW (FEW); BACTERIA,URINE RARE /HPF; RBC,URINE 0-5 /HPF (0-5); WBC,URINE (MAN) 0-5 /HPF (0-5)
[2022-03-11 20:23] VITALS: BP 118/69
== END 2022-03-11 20:25 | disposition home or self-care (01) ==
LOC: ER 18:00
DX: R30.0 Dysuria (principal); N32.89 Other specified disorders of bladder; I10 Essential (primary) hypertension; E11.9 Type 2 diabetes mellitus without complications; G20 Parkinson's disease; E78.5 Hyperlipidemia, unspecified; I25.10 Atherosclerotic heart disease of native coronary artery without angina pectoris; K21.9 Gastro-esophageal reflux disease without esophagitis; J45.909 Unspecified asthma, uncomplicated; Z86.73 Personal history of transient ischemic attack (TIA), and cerebral infarction without residual deficits; Z95.5 Presence of coronary angioplasty implant and graft
CPT/HCPCS: 81001; 87086; 99282